=== PATIENT | female | born 1995 | race Caucasian/White ===

== ENCOUNTER 2017-05-14 09:49 | Day surgery (SDC) | payer MEDICARE, MEDICAID, SELFPAY ==
--- NOTE | 2017-05-14 | SEP_PTH ---
PATIENT: YONNY COOL LOC: [facility] [place] U[place][id number] AGE/SX: 22/F ROOM: RE05/14/[address]: Dr. Albert Powell MD : 1995 BED: DIS: 05/14/2017 SPEC #: [id number] RECD: 05/14/17 14:18 STATUS: JOHN WHIT #: [id number] SHYLA: 05/14/17 00:[address]: Albert Powell DEPT: SURGICAL PATHOLOGY RECD BY: Fuentes Rosado ENTERED: 05/14/17 14:19 SP TYPE: SEPTUM OTHR DR: Dr. Albert Solitario MD Tissues: Nasal septum, NOS Procedures: Decalcification bone/plaque Surgery Specimen Level III HEADER OPERATION: Septoplasty PRE-OP DIAGNOSIS: Deviated nasal septum TISSUE SUBMITTED: Septal cartilage MICROSCOPIC DIAGNOSIS Nasal septal cartilage, septoplasty: Fragment of hyaline cartilage and bone with reactive change. AM:jamey 2/2/18 MICROSCOPIC DESCRIPTION Slides are reviewed. GROSS DESCRIPTION Received in fixative is one container labeled with the patient's name and designated septal cartilage. The specimen consists of multiple irregular fragments of pink-white bone and cartilage that in aggregate measure 6 x 3 x 0.2 cm. The specimen is totally submitted in one cassette after decalcification. / AM:jamey 05/14/17 TC:5 CPT:15246, 06268
[2017-05-14 10:21] VITALS: BP 114/83; PULSE 93; RESP 16; TEMP 36.9; O2SAT 96; BMI 22.6
[2017-05-14 10:41] LABS: Bedside Glucose 95 mg/dL (70-110)
[2017-05-14 11:36] LABS: Internal QC Validated? YES +Cl - CLEAR BKGD; Pregnancy, Urine Negative Negative
[2017-05-14] MEDS: Lidocaine 4% 50 ML Bottle (11:54)
[2017-05-14] MEDS: Bacitracin 500 UNITS/GM PACKET (12:11)
--- NOTE | 2017-05-14 12:24 | PCM.DC ---
You will use the following diet at home:: Regular Discharge Activity: Return to Normal Activity, May not drive while taking narcotic pain medications. Call your doctor if your incision/area has: Continuous Slow Oozing, Sudden Increased Bleeding Call your doctor if you observe: Fever of 101 or Higher, Uncontrolled pain Allergies/Adverse Reactions: Allergies adalimumab [From Humira] Allergy (Verified 03/02/17 14:16) Unknown amoxicillin [Amoxicillin] Allergy (Verified 03/02/17 14:16) Unknown benzalkonium [Benzalkonium] Allergy (Verified 03/02/17 14:16) Unknown corn [[place]] Allergy (Verified 03/02/17 14:16) Unknown kiwi Allergy (Verified 03/02/17 14:16) Unknown latex Allergy (Verified 03/02/17 14:16) Unknown procaine HCl [From Novocain] Allergy (Verified 03/02/17 14:16) Unknown Sulfa (Sulfonamide Antibiotics) Allergy (Verified 03/02/17 14:16) Hives venom-honey bee [bee venom (honey bee)] Allergy (Verified 03/02/17 14:16) Swelling Medications to take at Discharge RX: Divalproex Sodium [Depakote] 250 mg PO BID 08/12/16 RX: Metformin HCl 500 mg PO BID 03/02/17 Primary Care Physician: Albert Solitario MD [Primary Care Provider] - Please Follow Up With: Albert Powell MD When: 5 days
--- NOTE | 2017-05-14 12:26 | PCM.OPRPT ---
Problem List (1) Deviated nasal septum Status: Chronic Report of Operation Date of Procedure: 05/14/17 Pre-Operative Diagnosis: deviated nasal septum Post-Operative Diagnosis: same Surgery/Procedure Performed:: Septoplasty Description of Surgical Findings:: Elena is a 22-year-old female with a history of multiple medical problems previously treated for her chronic ear disease who presents for evaluation now for chronic left-sided nasal obstruction with exam showing marketed nasal septal deviation. This had failed medical therapy and showed significant anatomic obstruction and the above procedure was offered in hopes of alleviation. Additionally there is noted to be a small verrucous lesion along the columella with excision as part of the surgical incision offered and she was eager to proceed. The risks, alternatives, potential complications, and benefits were discussed at length and witnessed informed consent in the office. Procedure went as follows: The patient was identified in the preoperative holding brought to the operating room where she is placed under general anesthesia and intubated. When appropriate anesthesia obtained, oxymetazoline and 4% topical lidocaine soaked pledgets were placed in the nasal cavity decongest the nasal mucosa. After lying for vasoconstriction, these were then removed and the nasal cavity examined. There is noted be markedly leftward nasal septal deviation. Using a 15 blade scalpel, a hemitransfixion incision was then made along the left side incorporating the small verruca which was excised and discarded. Using a Trupti elevator, a sub-periosteal perichondrial flap was then elevated. Due to the anterior location of the deviation dissection was then carried out over the anterior lip of the cartilage and similar flap raised on the contralateral side the cartilage was then freed along the nasal floor and partially shortened to allow for to be repositioned in the midline. The bony cartilaginous junction was then in the posterior bony deviation then resected high with a Paris forceps in the inferior portion removed piecemeal with a Rani forceps. This left a marketed bony spur along the nasal floor and this was sharply removed with a sharp chisel. Allowed for replacement of the nasal septal flaps in the midline in the alleviating the nasal obstruction with anteriorly and posteriorly. The anterior nasal cartilage was then repositioned and secured in a small skin flap that was developed restoring nasal tip support and the hemitransfixion incision closed with interrupted 4-0 chromic suture. A 4 oh plain gut quilting stitch was then used to reapproximate the mucosal flaps and Loco splints coated in bacitracin ointment then applied and secured to the columella with a single 3-0 Prolene suture. An NG tube was then placed to decompress the stomach and the patient returned to anesthesia where she was revived and extubated without complication having tolerated the procedure well. Type of Anesthesia:: General Anesthesiologist: Albert Kohli Specimen's removed: septal contents Estimated Blood Loss (mL): 20 mL Fluids Replaced: 600 mL - Complications none - Admit VTE Documentation VTE Mechan Device Prophylaxis: SCD's VTE Pharm Prophylaxis ordered?: No
[2017-05-14 12:34] VITALS: BP 114/83; BP 129/89; PULSE 83; RESP 18; TEMP 36.2; O2SAT 100
[2017-05-14 12:45] VITALS: BP 114/83; BP 118/74; PULSE 75; RESP 18; O2SAT 100
[2017-05-14 13:00] VITALS: BP 114/83; BP 137/91; PULSE 68; RESP 16; O2SAT 100
[2017-05-14 13:15] VITALS: BP 114/83; BP 128/89; PULSE 71; RESP 16; TEMP 36.6; O2SAT 100
[2017-05-14] MEDS: HYDROcodone Bitartrate/Apap 5/325 Tablet PO (14:06)
[2017-05-14 14:30] VITALS: BP 114/83
== END 2017-05-14 14:30 | disposition home or self-care (01) ==
LOC: SDC 09:50 → AC 09:53
PROVIDERS: Anesthesiology; Family Provider Family Medicine; PCP Family Medicine; Visit Provider Otolaryngology
PROC: (CPT 30520; principal; 2017-05-14 11:15)
DX: J34.2 Deviated nasal septum (principal); B07.9 Viral wart, unspecified; H72.01 Central perforation of tympanic membrane, right ear; H70.12 Chronic mastoiditis, left ear; F17.200 Nicotine dependence, unspecified, uncomplicated; I34.1 Nonrheumatic mitral (valve) prolapse; G40.909 Epilepsy, unspecified, not intractable, without status epilepticus; K51.90 Ulcerative colitis, unspecified, without complications; M08.00 Unspecified juvenile rheumatoid arthritis of unspecified site; Z79.84 Long term (current) use of oral hypoglycemic drugs; Z79.899 Other long term (current) drug therapy
CPT/HCPCS: 00160; 30520; 81025; 82962; 88304; 88311; J7120; J2405

== ENCOUNTER → 2017-06-03 14:27 | Outpatient (CLI) | payer MEDICARE, SELFPAY ==
[2017-06-03 19:57] LABS: Chlamydia Trachomatis by PCR Negative (Negative); Neisserai gonorrhoeae by PCR Negative (Negative); Probe Check PASS; Sample Adequacy Control PASS; Specimen Processing Control PASS
[2017-06-07 10:41] LABS: HPV Reflexed? NOT INDICATED
== END ==
PROVIDERS: Family Provider Family Medicine; PCP Family Medicine; Visit Provider Obstetrics & Gynecology
DX: Z12.4 Encounter for screening for malignant neoplasm of cervix (principal); Z11.3 Encounter for screening for infections with a predominantly sexual mode of transmission
CPT/HCPCS: 87491; 87591; 88175; G0145

== ENCOUNTER 2017-06-19 12:56 | Emergency (ER) | payer MEDICARE, MEDICAID, SELFPAY ==
[2017-06-19 12:56] VITALS: BP 125/77; PULSE 99; RESP 18; TEMP 36.8; O2SAT 100; BMI 22.8
--- NOTE | 2017-06-19 14:27 | ED.RN ---
Addendum entered by Dominique Davis 06/19/17 15:20: PT REFUSES BLOODWORK AND URINE. AGREEABLE TO STAY AND SEE WHAT NEUROLOGIST ONCALL HAS TO RECOMMEND. Original Note: PT CALLED OUT WITH QUESTIONS. ASKING WHY BLOODWORK AND URINE. EXPLAINED DR REASONING AND WHAT LOOKING FOR ON TESTS. EDUCATION ON SEIZXURE TRIGGERS IN RELATION TO TESTS. PT STATES I KNOW WHAT CAUSED MY SEIZURE, i JUST WANTED TO MAKE SURE MY BABY WAS OKAY. EXPLAINED DEVELOPMENT AND VIABLILTY AT 8 WEEKS. RISKS/BENEFITS AND INDIATIONS TO VAG U/S. PATIENT DENIES ABD PAIN, LOWER BACK PAIN, NAUSEA, CRAMPING, BLEEDING/SPOTTING.
--- NOTE | 2017-06-19 14:46 | ED.VISSUMM ---
- ER Visit Summary Date of Service: 06/19/17 Chief Complaint: [Seizure] History of Present Illness: The patient is a 22 F [presents to the emergency department with complaint of a seizure that occurred this morning around 10 AM. Patient states that she felt a seizure coming on so she laid down in bed and ended up incontinent of urine. Patient unsure how long the seizure lasted as she was alone. Patient has a known seizure history and was on Depakote until 2 weeks ago when she had weaned herself off because she was . Patient thinks she is approximately 8 weeks . Patient is . She denies any abdominal pain or vaginal bleeding. She denies any fever. Patient states that she was recently treated for urinary tract infection but her symptoms have resolved. Patient does not see a neurologist. Dr. Albert Solitario manages her seizure meds and she has an appointment to see him in about 2 weeks to see if there is something else to treat her seizure disorder with that would be safe in . Patient states that here because she was worried about her and wanted to make sure everything was okay with the baby. Patient states she has had seizures since a young age and is not concerned about that aspect of it.] Physical Examination: [HEENT-PERRLA, EOMI. Cranial nerves II through XII grossly intact. TMs clear. Mucous membranes moist. No adenopathy. No wounds to the tongue. Cardiovascular-regular rate and rhythm without murmur or ectopy Lungs-clear to auscultation, chest wall stable without crepitus or subcu emphysema Abdomen-normoactive bowel sounds, soft, nontender, no rebound or rigidity, no peritoneal signs. Neuro exam-finger to nose and heel to sage testing within normal limits, negative Romberg, negative pronator drift, fundi benign Extremities-intact ?4, normal range of motion, normal pulses, atraumatic] Test Results: [Patient refused blood work and urinalysis.] Emergency Department Course and Treatment: [I discussed case with Dr. Baca who recommended started patient on Lamictal. Patient understands that there is a increased risk of teratogenicity with seizure medications but this would be 1 of the safer ones. I was also asked to have the patient take folic acid 4 mg daily and patient states that she is currently taking folic acid but is not sure of the dosage.] Treatment Plan: [Patient will start on Lamictal 25 mg daily for a week followed by 25 mg twice a day for a week followed by 50 mg twice a day thereafter and they recommended a Lamictal level in 3 weeks. Patient to follow-up with neurology in the office.] Disposition: [Discharged to home in stable condition] Impression: [Seizure disorder-recurrent] This note was generated with [employer] dictation software. It may contain incorrect words, spelling, and punctuation that were not noted in review of the chart prior to signing ED Disposition - Plan for ED Patient: Chief Complaint: Seizure Referrals: Albert Solitario MD [Primary Care Provider] -
--- NOTE | 2017-06-19 15:07 | ED.DEP ---
ED Disposition - Plan for ED Patient: Chief Complaint: Seizure Instructions: ED Seizure Recurrent Prescriptions: Lamotrigine [Lamictal] 25 mg PO DAILY #60 tab Referrals: Albert Solitario MD [Primary Care Provider] - Cipriano Baca MD [STAFF PHYSICIAN] - 5-7 Days Additional Instructions: take 4mg of Folic acid daily
[2017-06-19 15:21] VITALS: BP 120/74; PULSE 88; RESP 14; O2SAT 100
== END 2017-06-19 15:22 | disposition home or self-care (01) ==
LOC: ED 14:42
PROVIDERS: Emergency Provider Emergency Medicine; Family Provider Family Medicine; PCP Family Medicine
DX: O99.351 Diseases of the nervous system complicating pregnancy, first trimester (principal); G40.909 Epilepsy, unspecified, not intractable, without status epilepticus; O99.331 Smoking (tobacco) complicating pregnancy, first trimester; Z3A.08 8 weeks gestation of pregnancy
CPT/HCPCS: 99282

== ENCOUNTER → 2017-06-23 10:01 | Outpatient (CLI) | payer MEDICARE, MEDICAID, SELFPAY ==
[2017-06-23 13:26] LABS: hCG Titer Quant., Serum 63295 mIU/mL (<9 non-preg)
== END ==
PROVIDERS: Visit Provider Obstetrics & Gynecology
DX: O20.0 Threatened abortion (principal)
CPT/HCPCS: 36415; 84702

== ENCOUNTER → 2017-06-25 10:27 | Outpatient (CLI) | payer MEDICARE, MEDICAID, SELFPAY ==
[2017-06-25 11:21] LABS: hCG Titer Quant., Serum 56277 mIU/mL (<9 non-preg)
== END ==
PROVIDERS: Visit Provider Obstetrics & Gynecology
DX: O20.0 Threatened abortion (principal)
CPT/HCPCS: 36415; 84702

== ENCOUNTER 2017-06-28 10:27 | Day surgery (SDC) | payer MEDICARE, MEDICAID, SELFPAY ==
[2017-06-28] VITALS (8 sets, daily range): BP systolic 93–112; BP diastolic 52–68; PULSE 73–85; RESP 12–16; TEMP 36.2–36.7; O2SAT 95–100; BMI 23.1
[2017-06-28 11:14] LABS: Hemoglobin 13.6 g/dl (12.0-15.0); Mean Corp Hgb Conc 34.9 g/gl (32-36); Mean Corpuscular Hgb 30.9 pg (27.0-32.0); Mean Corpuscular Volume 88.6 fL (81-99); Mean Platelet Vol. 9.7 fl (6.2-12.0); Platelet Count 240 K/mm3 (150-450); RBC Distribution Width CV 12.7 % (11.6-14.6); RBC Distribution Width SD 40.6 fl (35.1-43.9); White Blood Count 10.5 K/mm3 (4.4-11.0)
[2017-06-28 11:15] LABS: Scan Indicated on CBC? Y/N NO
[2017-06-28 11:22] LABS: Partial Thromboplast Time 26.2 Seconds (24.1-36.2)
--- NOTE | 2017-06-28 12:00 | POC_PTH ---
PATIENT: YONNY COOL LOC: [facility] – [place] U#:[id number] AGE/SX: 22/F ROOM: RE06/28/[address]: Dr. John Paul Winkler MD : 1995 BED: DIS: 06/28/2017 SPEC #: [id number] RECD: 06/28/17 13:07 STATUS: JOHN WHIT #: [id number] SHYLA: 06/28/17 12:[address]: John Paul Winkler DEPT: SURGICAL PATHOLOGY RECD BY: Isidro Hernandez ENTERED: 06/28/17 14:01 SP TYPE: PROD CONC OTHR DR: Dr. Albert Solitario MD Tissues: Product of conception, NOS Procedures: Surgery Specimen Level IV HEADER OPERATION: Dilation and curettage, suction PRE-OP DIAGNOSIS: Missed TISSUE SUBMITTED: Products of conception MICROSCOPIC DIAGNOSIS Endometrium, curettage: Chorionic villi, decidualized stroma and trophoblastic cells consistent with products of conception. AM:jamey 06/29/17 MICROSCOPIC DESCRIPTION Slides are reviewed. GROSS DESCRIPTION Received in fixative is one container labeled with the patient's name and designated products of conception. The specimen consists of multiple fragments of pink-red soft tissue that in aggregate measure 6 x 6 x 2.5 cm. tissue is not identified. Boat Builder And Repairer sections are submitted in two cassettes. / SJ:rg 06/28/17 TC:5 CPT: 86231
--- NOTE | 2017-06-28 12:15 | PCM.DC ---
You will use the following diet at home:: No restrictions Your food should be the consistency of: Regular Discharge Activity: Return to Normal Activity, May Drive, May not drive while taking narcotic pain medications., May Shower Return to work on:: 07/05/17 May shower in (days): 0 May resume sexual activity in: 3 weeks Call your doctor if your incision/area has: Sudden Increased Bleeding, Increased Pain/ Swelling, Foul Smelling Discharge Call your doctor if you observe: Fever of 101 or Higher, Inability to urinate, Inability to have a bowel movement, Using more than one pad per hour, Shortness of breath, Chest pain, Calf discomfort, Uncontrolled pain Allergies/Adverse Reactions: Allergies adalimumab [From Humira] Allergy (Verified 06/24/17 09:42) Unknown amoxicillin [Amoxicillin] Allergy (Verified 06/24/17 09:42) Unknown benzalkonium [Benzalkonium] Allergy (Verified 06/24/17 09:42) Unknown corn [[place]] Allergy (Verified 06/24/17 09:42) Unknown kiwi Allergy (Verified 06/24/17 09:42) Unknown latex Allergy (Verified 06/24/17 09:42) Unknown procaine HCl [From Novocain] Allergy (Verified 06/24/17 09:42) Unknown Sulfa (Sulfonamide Antibiotics) Allergy (Verified 06/24/17 09:42) Hives venom-honey bee [bee venom (honey bee)] Allergy (Verified 06/24/17 09:42) Swelling Medications to take at Discharge Lamotrigine [Lamictal] 25 mg PO DAILY #60 tab 06/19/17 Oxycodone [Oxyir] 5 mg PO Q4H PRN PRN 5 Days #20 tab 06/28/17 The following prescriptions were given: Oxycodone [Oxyir] 5 mg PO Q4H PRN PRN 5 Days #20 tab PRN Reason: Severe Pain (6-10/10) Primary Care Physician: Albert Solitario MD [Primary Care Provider] - Please Follow Up With: John Paul Winkler MD When: one week Proposed Discharge Date: 06/28/17
--- NOTE | 2017-06-28 12:28 | OP.PCM_ITS ---
Problem List (1) Missed with demise before 20 completed weeks of gestation Status: Chronic Report of Operation Date of Procedure: 06/28/17 Pre-Operative Diagnosis: Missed Post-Operative Diagnosis: Same Surgery/Procedure Performed:: Suction Dilation and Curettage Description of Surgical Findings:: 6 weeks size uterus. No cervical lesions. Products of conception appropriate senior marketing data analyst: None Type of Anesthesia:: MAC Anesthesiologist: Flaco Pandya Specimen's removed: Products of Conception Drains: None Estimated Blood Loss (mL): 25cc Fluids Replaced: 500cc Description of Procedure: Elena was taken to the OR with IV running. She was given clindamycin and gentamicin intravenously prior to the procedure as surgical prophylaxis. MAC anesthesia was then introduced without complication. She was prepped and draped in the dorsal lithotomy position. A catheter was then used to drain the bladder. A weighted speculum was placed in the posterior vagina, the cervix identified, and then grasped with a single toothed tenaculum. The cervix was then serially dilated to 7 mm without difficulty. A #7 suction curette was then placed into the uterine cavity. Suction was applied and products of conception obtained. A sharp curettage was then performed to a gritty texture throughout. The suction curette was reintroduced and the remaining products of conception obtained. All instruments were then removed from the vagina. Good hemostasis was noted. SHe was reversed from anesthesia and taken to the recovery room in stable condition. Grafts/Implants Used: none - Complications none - Admit VTE Documentation VTE Present on Admission: No VTE Mechan Device Prophylaxis: SCD's VTE Pharm Prophylaxis ordered?: No
[2017-06-28] MEDS: Clindamycin 900 MG/50 ML BAG 75 MG IV (12:36)
[2017-06-28] MEDS: oxyCODONE 5 MG Tablet PO (13:40)
== END 2017-06-28 14:00 | disposition home or self-care (01) ==
LOC: SDC 10:29 → AC 10:31
PROVIDERS: Family Provider Family Medicine; PCP Family Medicine; Visit Provider Obstetrics & Gynecology
PROC: (CPT 59820; principal; 2017-06-28 11:45)
DX: O02.1 Missed abortion (principal); R56.9 Unspecified convulsions; R73.03 Prediabetes; F17.210 Nicotine dependence, cigarettes, uncomplicated; Z79.84 Long term (current) use of oral hypoglycemic drugs; Z79.899 Other long term (current) drug therapy
CPT/HCPCS: 59820; 85027; 85610; 85730; 86850; 86900; 88305; J3010; J7120; J2405

== ENCOUNTER 2017-10-22 11:19 | Day surgery (SDC) | payer MEDICARE, MEDICAID, SELFPAY ==
[2017-10-22 11:45] VITALS: BP 111/66; PULSE 95; RESP 14; TEMP 36.6; O2SAT 98; BMI 24.7
[2017-10-22 11:49] LABS: Internal QC Validated? YES +Cl - CLEAR BKGD; Pregnancy, Urine Negative Negative
[2017-10-22] MEDS: Bacitracin 500 UNITS/GM PACKET (13:36)
--- NOTE | 2017-10-22 15:16 | PCM.OPRPT ---
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 This is been successfully treated with mastoidectomy and excellent correction of her conductive hearing loss. She continued to suffer large tympanic membrane perforation of the right with a significant conductive hearing loss and repair was offered in hopes of improvement of her hearing on that side as well. She was eager to proceed. The risks, alternatives, potential benefits, and complications were discussed at length and any questions answered to the patient and/or caregiver's satisfaction. Witnessed informed consent was obtained in the office, and the patient and/or caregiver was agreeable to proceed. Procedure went as follows: The patient was identified in the preoperative holding brought to the operating room and was placed under general anesthesia and intubated. The operative ear had been site marked preoperatively in accordance with the office notes patient exam and history. The patient was then placed under general anesthesia and the right ear prepped and draped in usual sterile fashion. The facial nerve monitoring electrodes were then placed in the confirmed to be operational in accordance with the manufactures directions. The planned postauricular incision site for fascial graft harvest was then injected with 1% lidocaine with 100,000 epinephrine for a total of 4 cc. Through a #4 otic speculum the operative microscope was brought into the field and the external auditory canal and tympanic membrane visualized. The lateral canal wall was then injected with 1% lidocaine with 100,000 epinephrine for a total of 0.5 cc. Using a sickle knife the edge of the perforation was then sharply resected and withdrawn from the ear canal with a cup forceps. Using a round knife a vascular strip incision was then created and the skin flap developed toward the annulus. The middle ear cleft was then entered with a curved pick and the annulus elevated with the annulus elevator. This was then draped anteriorly to allow visualization of the middle ear cleft which is noted to be healthy in appearance. Epinephrine soaked cotton balls and placed for hemostasis and attention turned to the fascial graft harvest. A 3 cm incision was then created a 15 blade scalpel posterior to the auricle at the previous injection site. The skin and subcutaneous tissues were then dissected and the posterior auricular muscle sharply transected. The subfascial plane was then widely developed any 2.5 x 2.5 centimeter portion of loose areolar tissue then harvested and set aside on a Gilmer block for reconstruction of the tympanic membrane. The wound edges were then cauterized with electrocautery for hemostasis and closed deeply with interrupted 3-0 Vicryl sutures followed by running 5-0 Monocryl to the skin. This completed the graft harvest portion of the procedure. Attention was then turned to reconstruction of the tympanic membrane. The operative microscope was replaced and through an otic speculum the middle ear cleft filled with Gelfoam packing material after removal of the epinephrine soaked cotton balls. The previously harvested graft tissue was then placed in an underlay fashion ensuring that it completely covered the tympanic membrane perforation. The vascular strip was then returned to its [place] position and additional Gelfoam material applied laterally to hold the composite tissue graft in place. Bacitracin ointment was then applied to secure the material and the patient then cleaned of prep solution and the facial nerve monitoring electrodes removed. The patient was then returned to anesthesia, revived and extubated without complication having tolerated the procedure well. Type of Anesthesia:: General Anesthesiologist: Albert Kohli Special Medications: none Specimen's removed: none Drains: none Estimated Blood Loss (mL): 0 mL Fluids Replaced: 800 mL Grafts/Implants Used: fascia graft - Complications none - Admit VTE Documentation VTE Present on Admission: No VTE Mechan Device Prophylaxis: SCD's VTE Pharm Prophylaxis ordered?: No
--- NOTE | 2017-10-22 15:20 | PCM.DC ---
- Discharge Diagnoses Current Active Problems: Current Active and Chronic Problems Central perforation of tympanic membrane of right ear (Chronic) You will use the following diet at home:: Regular Discharge Activity: Return to Normal Activity, May not drive while taking narcotic pain medications. Call your doctor if your incision/area has: Continuous Slow Oozing, Increased Pain/ Swelling, Swelling at the incision site Call your doctor if you observe: Fever of 101 or Higher, Uncontrolled pain Allergies/Adverse Reactions: Allergies adalimumab [From Humira] Allergy (Verified 10/14/17 16:23) Unknown amoxicillin [Amoxicillin] Allergy (Verified 10/14/17 16:23) Unknown benzalkonium [Benzalkonium] Allergy (Verified 10/14/17 16:23) Unknown corn [[place]] Allergy (Verified 10/14/17 16:23) Unknown kiwi Allergy (Verified 10/14/17 16:23) Unknown latex Allergy (Verified 10/14/17 16:23) Unknown procaine HCl [From Novocain] Allergy (Verified 10/14/17 16:23) Unknown Sulfa (Sulfonamide Antibiotics) Allergy (Verified 10/14/17 16:23) Hives venom-honey bee [bee venom (honey bee)] Allergy (Verified 10/14/17 16:23) Swelling Medications to take at Discharge RX: Lamotrigine [Lamictal] 25 mg PO DAILY #60 tab 06/19/17 Citalopram Hydrobromide [Celexa] 20 mg PO DAILY 10/22/17 Primary Care Physician: Albert Solitario MD [Primary Care Provider] - Test Results: Test results from this visit will be discussed in further detail at your follow-up appointment, if applicable. Please Follow Up With: Albert Powell MD When: 4 days
[2017-10-22 15:23] VITALS: BP 111/66; BP 132/69; PULSE 103; RESP 16; TEMP 36.3; O2SAT 99
[2017-10-22 15:30] VITALS: BP 111/66; BP 121/62; PULSE 95; RESP 16; O2SAT 95
[2017-10-22 15:45] VITALS: BP 111/66; BP 121/67; PULSE 95; RESP 16; O2SAT 96
[2017-10-22 15:56] VITALS: BP 111/66; BP 118/69; PULSE 106; RESP 16; TEMP 36.2; O2SAT 97
[2017-10-22 16:22] VITALS: BP 111/66
== END 2017-10-22 16:23 | disposition home or self-care (01) ==
LOC: SDC 11:19 → AC 11:21
PROVIDERS: Family Provider Family Medicine; PCP Family Medicine; Visit Provider Otolaryngology
PROC: (CPT 20926; principal; 2017-10-22 12:50)
DX: H72.01 Central perforation of tympanic membrane, right ear (principal); H90.0 Conductive hearing loss, bilateral; H95.02 Recurrent cholesteatoma of postmastoidectomy cavity, left ear; J30.9 Allergic rhinitis, unspecified; R56.9 Unspecified convulsions; M08.00 Unspecified juvenile rheumatoid arthritis of unspecified site; F17.200 Nicotine dependence, unspecified, uncomplicated; Z87.442 Personal history of urinary calculi; Z79.899 Other long term (current) drug therapy
CPT/HCPCS: 20926; 69631; 81025; J7120; J2405

== ENCOUNTER → 2017-12-01 13:35 | Outpatient (CLI) | payer MEDICARE, MEDICAID, SELFPAY ==
[2017-12-01 17:15] LABS: Chlamydia Trachomatis by PCR Negative (Negative); Neisserai gonorrhoeae by PCR Negative (Negative); Probe Check PASS; Sample Adequacy Control PASS; Specimen Processing Control PASS
== END ==
PROVIDERS: Visit Provider Obstetrics & Gynecology
DX: Z11.3 Encounter for screening for infections with a predominantly sexual mode of transmission (principal); Z32.01 Encounter for pregnancy test, result positive
CPT/HCPCS: 87491; 87591

== ENCOUNTER → 2017-12-16 10:55 | Outpatient (CLI) | payer MEDICARE, MEDICAID, SELFPAY ==
[2017-12-16 12:29] LABS: Absolute Neutrophil Count 7.2 X10^3/uL (2.0-7.7); Basophil# 0.05 X10^3/uL; Basophil% 0.5 % (0-1); Eosinophil# 0.25 X10^3/uL; Eosinophils% 2.4 % (0-5); Hematocrit 37.7 % (37-47); Hemoglobin 13.1 g/dl (12.0-15.0); Lymphocyte % 20.9 % (19-41); Mean Corp Hgb Conc 34.7 g/gl (32-36); Mean Corpuscular Hgb 30.7 pg (27.0-32.0); Mean Corpuscular Volume 88.3 fL (81-99); Mean Platelet Vol. 10.4 fl (6.2-12.0); Monocyte# 0.85 X10^3/uL; Monocyte% 8.1 % (0-10); Neutrophil # 7.19 X10^3/uL (2.7-7.7); Platelet Count 242 K/mm3 (150-450); RBC Distribution Width CV 12.1 % (11.6-14.6); RBC Distribution Width SD 38.3 fl (35.1-43.9); Red Blood Count 4.27 M/mm3 (4.2-5.4); White Blood Count 10.6 K/mm3 (4.4-11.0)
[2017-12-16 12:35] LABS: Color, Urine Yellow (Yellow); Glucose, Dipstick Normal (Normal); Ketone-Dipstick Negative (Negative); Leukocyte Esterase-Dipstick Negative /ul (Negative); Nitrite-Dipstick Negative (Negative); Occult Blood-Urine Negative /ul (Negative); Protein-Dipstick Negative (Negative); Specific Gravity, Urine 1.015 (1.002-1.030); Urine Bilirubin Dipstick Negative (Negative); Urine Clarity Clear (Clear); Urine Urobilinogen Normal (Normal)
[2017-12-16 12:37] LABS: POSITIVE COUNT NO; POSITIVE DIFFERENTIAL NO; POSITIVE MORPHOLOGY NO
[2017-12-16 12:56] LABS: Amphetamine Urine VISTA NEGATIVE (<1000 ng/mL); Barbiturate Urine VISTA NEGATIVE (< 200 ng/mL); Benzodiazepine Urine VISTA NEGATIVE (< 200 ng/mL); Cocaine Urine VISTA NEGATIVE (< 300 ng/mL); Ecstacy Urine VISTA NEGATIVE (< 500 ng/mL); Methadone Urine VISTA NEGATIVE (< 300 ng/mL); PCP Urine VISTA NEGATIVE (< 25 ng/mL); THC Urine VISTA POSITIVE (< 50 ng/mL); Vista UDS pH Range 7
[2017-12-16 13:18] LABS: COTININE Drug Screen Positive (<200 ng/mL)
[2017-12-17 03:50] LABS: Prenatal RPR NONREACTIVE (NONREACTIVE)
[2017-12-17 09:42] LABS: HIV - WCH Non-Reactive (Nonreactive); Rubella IgG 139.7 IU/mL
[2017-12-20 13:18] LABS: HEPATITIS B SURFACE AG Negative (Negative); Hep C Antibodies <0.1 s/co ratio (0.0-0.9); V-Zoster IgG (Immunity) 2435 index (Immune >165)
== END ==
PROVIDERS: Family Provider Family Medicine; PCP Family Medicine; Visit Provider Obstetrics & Gynecology
DX: Z34.81 Encounter for supervision of other normal pregnancy, first trimester (principal)
CPT/HCPCS: 36415; 80307; 81002; 84443; 85025; 86703; 86762; 86787; 86803; 87340

== ENCOUNTER → 2018-05-12 11:07 | Outpatient (CLI) | payer MEDICARE, MEDICAID, SELFPAY ==
[2018-05-12 13:04] LABS: Hematocrit 33.9 % (37-47); Hemoglobin 11.6 g/dl (12.0-15.0); Mean Corp Hgb Conc 34.2 g/gl (32-36); Mean Corpuscular Hgb 31.6 pg (27.0-32.0); Mean Corpuscular Volume 92.4 fL (81-99); Mean Platelet Vol. 9.6 fl (6.2-12.0); Platelet Count 258 K/mm3 (150-450); RBC Distribution Width CV 12.8 % (11.6-14.6); RBC Distribution Width SD 42.3 fl (35.1-43.9); Red Blood Count 3.67 M/mm3 (4.2-5.4); White Blood Count 19.1 K/mm3 (4.4-11.0)
[2018-05-12 13:05] LABS: Scan Indicated on CBC? Y/N NO
[2018-05-12 13:10] LABS: Glucose Challenge Gest 1H 50g 108 mg/dL (70-140)
== END ==
PROVIDERS: PCP Family Medicine; Visit Provider Obstetrics & Gynecology
DX: Z34.83 Encounter for supervision of other normal pregnancy, third trimester (principal)
CPT/HCPCS: 36415; 82950; 85027

== ENCOUNTER → 2018-07-06 16:13 | Outpatient (CLI) | payer MEDICARE, MEDICAID, SELFPAY ==
[2017-10-25 15:48] VITALS: BMI 24.8
== END ==
PROVIDERS: Visit Provider Obstetrics & Gynecology
DX: Z36.85 Encounter for antenatal screening for Streptococcus B (principal)
CPT/HCPCS: 87081

== ENCOUNTER → 2018-07-12 10:56 | Outpatient (CLI) | payer MEDICARE, MEDICAID, SELFPAY ==
[2017-10-25 15:48] VITALS: BMI 24.8
[2018-07-12 11:25] LABS: Hematocrit 33.7 % (37-47); Hemoglobin 11.7 g/dl (12.0-15.0); Mean Corp Hgb Conc 34.7 g/gl (32-36); Mean Corpuscular Volume 89.2 fL (81-99); Mean Platelet Vol. 9.7 fl (6.2-12.0); Platelet Count 183 K/mm3 (150-450); RBC Distribution Width CV 13.3 % (11.6-14.6); RBC Distribution Width SD 43.1 fl (35.1-43.9); Red Blood Count 3.78 M/mm3 (4.2-5.4); White Blood Count 13.7 K/mm3 (4.4-11.0)
[2018-07-12 11:26] LABS: Scan Indicated on CBC? Y/N NO
[2018-07-12 11:34] LABS: International Normalized Ratio 0.9; Partial Thromboplast Time 25.9 Seconds (24.1-36.2); Prothrombin Time (Protime)PT. 11.8 SECONDS (11.7-14.9)
[2018-07-12 12:07] LABS: AST(SGOT) 13 U/L (15-37); Alanine Aminotransfer ALT/SGPT 11 U/L (13-56); EST Glomerular Filtration Rate 162 mL/min (>60); Est Glom Filt Rate - Afr Amer 196 mL/min (>60); Uric Acid 3.4 mg/dL (2.6-6.0)
== END ==
PROVIDERS: Visit Provider Obstetrics & Gynecology
DX: Z34.83 Encounter for supervision of other normal pregnancy, third trimester (principal)
CPT/HCPCS: 36415; 82565; 84450; 84460; 84550; 85027; 85610; 85730

== ENCOUNTER → 2018-07-13 16:34 | Outpatient (CLI) | payer MEDICARE, MEDICAID, SELFPAY ==
[2017-10-25 15:48] VITALS: BMI 24.8
[2018-07-13 17:30] LABS: ROM Internal Control Test YES-OK TO RESULT pt. (Internal QC); ROM Patient Test Negative (Negative); Record Kit Lot#, ROM+ J7836
[2018-07-13 18:36] LABS: 24 Hour Urine Protein 211.6 mg/24HR (<150 MG/24HR); 24HR. UA Prot. Total Volume 850 mL; Urine Protein (24 Hour) 24.9 mg/dL (<11.9)
== END ==
PROVIDERS: Visit Provider Obstetrics & Gynecology
DX: Z34.83 Encounter for supervision of other normal pregnancy, third trimester (principal)
CPT/HCPCS: 81050; 84112; 84156

== ENCOUNTER 2018-07-23 18:45 | Outpatient (CLI) | payer MEDICARE, MEDICAID, SELFPAY ==
[2018-07-23 18:55] VITALS: BMI 30.7
[2018-07-23] MEDS: 0.9% NaCl Peripheral Flush Adult/Peds IV (20:35)
[2018-07-23 21:10] LABS: AST(SGOT) 13 U/L (15-37); Alanine Aminotransfer ALT/SGPT 12 U/L (13-56); Creatinine, Serum 0.46 mg/dL (0.55-1.02); EST Glomerular Filtration Rate 179 mL/min (>60); Est Glom Filt Rate - Afr Amer 217 mL/min (>60); Estimated Creatinine Clearance 188.06 ml/min; Uric Acid 3.4 mg/dL (2.6-6.0)
[2018-07-23 21:21] LABS: Hematocrit 35.1 % (37-47); Mean Corp Hgb Conc 34.2 g/gl (32-36); Mean Corpuscular Hgb 30.6 pg (27.0-32.0); Mean Corpuscular Volume 89.5 fL (81-99); Mean Platelet Vol. 9.5 fl (6.2-12.0); Platelet Count 215 K/mm3 (150-450); RBC Distribution Width CV 13.4 % (11.6-14.6); RBC Distribution Width SD 43.4 fl (35.1-43.9); Red Blood Count 3.92 M/mm3 (4.2-5.4); White Blood Count 15.1 K/mm3 (4.4-11.0)
[2018-07-23 21:24] LABS: Bacteria 0 SEEN /hpf (None Seen); Mucous, Urine 0 SEEN /hpf (<or=2+)
[2018-07-23 21:25] LABS: International Normalized Ratio 0.9; Partial Thromboplast Time 26.2 Seconds (24.1-36.2); Scan Indicated on CBC? Y/N NO
[2018-07-23 21:29] LABS: Color, Urine Yellow (Yellow); Glucose, Dipstick Normal (Normal); Ketone-Dipstick Negative (Negative); Leukocyte Esterase-Dipstick 500 /ul (Negative); Nitrite-Dipstick Negative (Negative); Occult Blood-Urine Negative /ul (Negative); Protein-Dipstick Negative (Negative); Urine Bilirubin Dipstick Negative (Negative); Urine Clarity Clear (Clear); Urine Urobilinogen Normal (Normal)
[2018-07-23 21:37] LABS: Red Blood Cells-Urine 0-5 SEEN /hpf (0-5); White Blood Cells 0-5 SEEN /hpf (0-5)
[2018-07-23 21:38] LABS: Squamous Epithelial Cells - UA 5-10 SEEN /hpf (5-10)
--- NOTE | 2018-07-25 08:51 | OB.TRI.HP_ITS ---
History of Present Illness Date of Service: 07/23/18 Was patient seen by the physician?: No Reason For Visit: INCREASED BP Date of Service: 07/23/18 Final YAMILET: 07/31/18 Final YAMILET Source: US <20 weeks Gestational age: 38 Weeks and 6 Days History of Present Illness: 38+ week presents with headaches. Also some spots in her vision. Patient is a smoker. Induction scheduled for next week. Allergies adalimumab [From Humira] Allergy (Verified 07/23/18 18:55) Unknown amoxicillin [Amoxicillin] Allergy (Verified 07/23/18 18:55) Unknown benzalkonium [Benzalkonium] Allergy (Verified 07/23/18 18:55) Unknown corn [[place]] Allergy (Verified 07/23/18 18:55) Unknown kiwi Allergy (Verified 07/23/18 18:55) Unknown latex Allergy (Verified 07/23/18 18:55) Unknown procaine HCl [From Novocain] Allergy (Verified 07/23/18 18:55) Unknown Sulfa (Sulfonamide Antibiotics) Allergy (Verified 07/23/18 18:55) Hives venom-honey bee [bee venom (honey bee)] Allergy (Verified 07/23/18 18:55) Swelling - Pertinent Past Medical History Medical History: Past Medical History (Last Updated 10/25/17 @ 15:26 by Magda Tenorio) Benign tumor of breast History of arthritis History of frequent headaches History of hemorrhoids History of mitral valve prolapse history of eardrum reconstruction Surgical History: Past Surgical History (Last Updated 10/25/17 @ 15:26 by Magda Tenorio) History of appendectomy Laboratory Studies: Laboratory Tests 07/23/18 07/23/18 07/23/18 Range/Units 20:57 20:40 20:40 WBC (4.4-11.0) K/mm3 RBC (4.2-5.4) M/mm3 Hgb (12.0-15.0) g/dl Hct (37-47) % MCV (81-99) fL MCH (27.0-32.0) pg MCHC (32-36) g/gl RDW (11.6-14.6) % RDW Differential (35.1-43.9) fl Plt Count (150-450) K/mm3 MPV (6.2-12.0) fl PT 12.0 (11.7-14.9) SECONDS INR 0.9 APTT 26.2 (24.1-36.2) Seconds Creatinine 0.46 L (0.55-1.02) mg/dL Estim Creat Clear Calc 188.06 ml/min Est GFR (MDRD) Af Amer 217 (>60) mL/min Est GFR (MDRD) Non-Af 179 (>60) mL/min Uric Acid 3.4 (2.6-6.0) mg/dL AST 13 L (15-37) U/L ALT 12 L (13-56) U/L Urine Color Yellow (Yellow) Urine Clarity Clear (Clear) Urine pH 7.0 (5.0 - 8.0) Ur Specific [place] 1.010 (1.002-1.030) Urine Protein Negative (Negative) mg/dl Urine Glucose (UA) Normal (Normal) mg/dl Urine Ketones Negative (Negative) mg/dl Urine Occult Blood Negative (Negative) /ul Urine Nitrite Negative (Negative) Urine Bilirubin Negative (Negative) mg/dL Urine Urobilinogen Normal (Normal) mg/dl Ur Leukocyte Esterase 500 H (Negative) /ul Urine RBC 0-5 SEEN (0-5) /hpf Urine WBC 0-5 SEEN (0-5) /hpf Ur Squamous Epith Cells 5-10 SEEN (5-10) /hpf Urine Bacteria 0 SEEN (None Seen) /hpf Urine Mucus 0 SEEN (<or=2+) /hpf 07/23/18 Range/Units 20:40 WBC 15.1 H (4.4-11.0) K/mm3 RBC 3.92 L (4.2-5.4) M/mm3 Hgb 12.0 (12.0-15.0) g/dl Hct 35.1 L (37-47) % MCV 89.5 (81-99) fL MCH 30.6 (27.0-32.0) pg MCHC 34.2 (32-36) g/gl RDW 13.4 (11.6-14.6) % RDW Differential 43.4 (35.1-43.9) fl Plt Count 215 (150-450) K/mm3 MPV 9.5 (6.2-12.0) fl PT (11.7-14.9) SECONDS INR APTT (24.1-36.2) Seconds Creatinine (0.55-1.02) mg/dL Estim Creat Clear Calc ml/min Est GFR (MDRD) Af Amer (>60) mL/min Est GFR (MDRD) Non-Af (>60) mL/min Uric Acid (2.6-6.0) mg/dL AST (15-37) U/L ALT (13-56) U/L Urine Color (Yellow) Urine Clarity (Clear) Urine pH (5.0 - 8.0) Ur Specific [place] (1.002-1.030) Urine Protein (Negative) mg/dl Urine Glucose (UA) (Normal) mg/dl Urine Ketones (Negative) mg/dl Urine Occult Blood (Negative) /ul Urine Nitrite (Negative) Urine Bilirubin (Negative) mg/dL Urine Urobilinogen (Normal) mg/dl Ur Leukocyte Esterase (Negative) /ul Urine RBC (0-5) /hpf Urine WBC (0-5) /hpf Ur Squamous Epith Cells (5-10) /hpf Urine Bacteria (None Seen) /hpf Urine Mucus (<or=2+) /hpf NST - FHR Rate Baby A NST Reactive:: Yes FHR Category:: Category I Impression/Plan 38+ week intrauterine with transient gestational hypertension. PIH workup negative. Blood pressures okay when resting. Patient discharged to home with instructions for bedrest most of the time and to return the office on Wednesday for a blood pressure check. Reactive nonstress test.
== END 2018-07-23 23:00 | disposition home or self-care (01) ==
LOC: WPOUT 18:53 → WP 18:53
PROVIDERS: Family Provider Family Medicine; PCP Family Medicine; Referring Provider Obstetrics & Gynecology; Visit Provider Obstetrics & Gynecology
DX: O13.3 Gestational [pregnancy-induced] hypertension without significant proteinuria, third trimester (principal); Z3A.38 38 weeks gestation of pregnancy
CPT/HCPCS: 36415; 59025; 59050; 81001; 82565; 84450; 84460; 84550; 85027; 85610; 85730; 99218; G0378

== ENCOUNTER 2018-07-29 06:53 | Inpatient (IN) | payer MEDICARE, MEDICAID, SELFPAY ==
[2018-07-29 07:28] VITALS: BMI 31.1
[2018-07-29] MEDS: Lactated Ringers 1,000 ML 50 ML IV ×5 (07:30→21:55)
[2018-07-29] MEDS: 0.9% Normal Saline 100 ML IV.SOLN. INTRA-UTER (07:53)
--- NOTE | 2018-07-29 07:54 | PCM.PROGNOTE ---
Subjective: Comfortable Objective: Afeb BPs 130s to 140s/80 to 90s FHR tracing overall Cat 1. - Physical Exam General: Alert, Oriented x3, Cooperative, No apparent distress Lungs: Clear to auscultation, Normal air movement Cardiovascular: Regular rate, Regular Rhythm Abdomen: Soft, Non Tender, Non-Distended, Gravid, Appropriate for Gestational Age Extremities: No edema Skin: No rashes Neurological: Neuro grossly intact Psych/Mental Status: Normal Affect Comment: CE /-3 Weight: 138 lb 14.259 oz Body Mass Index (BMI) 31.1 Medical Necessity - Tobacco Use Smoking Status: Current every day smoker Assessment/Plan All Active Problems (Last Updated 10/25/17 @ 15:26 by Magda Tenorio) Lymphadenopathy, inguinal (Acute) Admitted for induction of labor secondary to gestational hypertension. No signs of preeclampsia. Dean Pitocin induction started. Silicone catheter placed through the cervical os and then balloon filled with 50cc of NS. Will start pitocin to induce contractions.
[2018-07-29 08:14] LABS: Absolute Lymphocyte Count 2.36 X10^3/ul (0.83-4.51); Absolute Neutrophil Count 12.1 X10^3/uL (2.0-7.7); Basophil# 0.03 X10^3/uL; Basophil% 0.2 % (0-1); Eosinophil# 0.13 X10^3/uL; Eosinophils% 0.8 % (0-5); Hematocrit 37.1 % (37-47); Hemoglobin 12.9 g/dl (12.0-15.0); Lymphocyte # 2.36 X10^3/ul (4.0); Lymphocyte % 14.6 % (19-41); Mean Corp Hgb Conc 34.8 g/gl (32-36); Mean Corpuscular Hgb 30.9 pg (27.0-32.0); Mean Corpuscular Volume 88.8 fL (81-99); Mean Platelet Vol. 10.2 fl (6.2-12.0); Monocyte# 1.41 X10^3/uL; Monocyte% 8.7 % (0-10); Neutrophil # 12.12 X10^3/uL (2.7-7.7); Neutrophil % 75.2 % (47-70); POSITIVE COUNT NO; POSITIVE DIFFERENTIAL NO; POSITIVE MORPHOLOGY NO; Platelet Count 225 K/mm3 (150-450); RBC Distribution Width SD 41.5 fl (35.1-43.9); Red Blood Count 4.18 M/mm3 (4.2-5.4); White Blood Count 16.1 K/mm3 (4.4-11.0)
[2018-07-29] MEDS: Oxytocin 30 units/NS 500 ml 30 UNITS/500 ML IV.SOLN IV (08:55)
[2018-07-29] MEDS: Nalbuphine 10 MG/ML Ampul IV (10:32)
[2018-07-29] MEDS: fentaNYL-bupivacaine (epidural) 100 ML BAG EPIDURAL ×2 (11:57→17:51)
--- NOTE | 2018-07-29 12:21 | PN_ITS ---
Subjective: More comfortable with epidural in place Objective: Afeb VSS FHR tracing Cat 1 - Physical Exam General: Alert, Oriented x3, Cooperative, No apparent distress Abdomen: Soft, Non Tender, Non-Distended, Gravid, Appropriate for Gestational Age Skin: No rashes Neurological: Neuro grossly intact Psych/Mental Status: Normal Affect Comment: CE 4cm 50 -3 Weight: 138 lb 14.259 oz Body Mass Index (BMI) 31.1 Laboratory Tests Past 24 Hrs 07/29/18 07/29/18 07:30 07:30 WBC 16.1 H RBC 4.18 L Hgb 12.9 Hct 37.1 MCV 88.8 MCH 30.9 MCHC 34.8 RDW 13.0 RDW Differential 41.5 Plt Count 225 MPV 10.2 Immature Gran % (Auto) 0.500 Neut % (Auto) 75.2 H Lymph % (Auto) 14.6 L [place] % (Auto) 8.7 Eos % (Auto) 0.8 Baso % (Auto) 0.2 Absolute Neuts (auto) 12.1 H Absolute Lymphs (auto) 2.36 Total Counted Not Reportable Blood Type A POSITIVE Antibody Screen NEGATIVE Medical Necessity - Tobacco Use Smoking Status: Light Smoker (<10/day) Assessment/Plan All Active Problems (Last Updated 10/25/17 @ 15:26 by Magda Tenorio) Lymphadenopathy, inguinal (Acute) Dean bulb now out. AROM performed with clear fluid. IUPC placed. Epidural in place. Continue pitocin induction
--- NOTE | 2018-07-29 15:36 | PCM.PROGNOTE ---
Subjective: Comfortable with epidural Objective: Afeb VSS - Physical Exam General: Alert, Oriented x3, Cooperative, No apparent distress Abdomen: Soft, Non Tender, Non-Distended, Gravid, Appropriate for Gestational Age Comment: CE /-2 Weight: 138 lb 14.259 oz Body Mass Index (BMI) 31.1 Intake and Output for Last 24 Hours 07/27/18 07/28/18 07/29/18 23:59 23:59 23:59 Intake Total 2130 / 2130 Output Total 400 / 400 Balance 1730 / 1730 Laboratory Tests Past 24 Hrs 07/29/18 07/29/18 07:30 07:30 WBC 16.1 H RBC 4.18 L Hgb 12.9 Hct 37.1 MCV 88.8 MCH 30.9 MCHC 34.8 RDW 13.0 RDW Differential 41.5 Plt Count 225 MPV 10.2 Immature Gran % (Auto) 0.500 Neut % (Auto) 75.2 H Lymph % (Auto) 14.6 L [place] % (Auto) 8.7 Eos % (Auto) 0.8 Baso % (Auto) 0.2 Absolute Neuts (auto) 12.1 H Absolute Lymphs (auto) 2.36 Total Counted Not Reportable Blood Type A POSITIVE Antibody Screen NEGATIVE Medical Necessity - Tobacco Use Smoking Status: Light Smoker (<10/day) Assessment/Plan All Active Problems (Last Updated 10/25/17 @ 15:26 by Magda Tenorio) Lymphadenopathy, inguinal (Acute) Making progress in labor. FHR tracing reassuring.
[2018-07-29] MEDS: Amnioinfusion- 0.9% NS 1,000 ML IV.SOLN. INTRA-UTER (18:18)
[2018-07-30] VITALS (9 sets, daily range): BP systolic 108–150; BP diastolic 59–89; PULSE 88–137; RESP 16–24; TEMP 36.3–36.9; O2SAT 97–100
[2018-07-30] MEDS: fentaNYL-bupivacaine (epidural) 100 ML BAG EPIDURAL (00:33)
[2018-07-30] MEDS: Acetaminophen 325 MG Tablet PO (00:55)
[2018-07-30] MEDS: Lactated Ringers 1,000 ML 50 ML IV (01:41)
--- NOTE | 2018-07-30 01:44 | PCM.PROGNOTE ---
Subjective: Feeling contractions Objective: Tm 101 BP stable - Physical Exam General: Alert, Oriented x3, Cooperative, No apparent distress Abdomen: Soft, Non Tender, Non-Distended, Gravid, Appropriate for Gestational Age Skin: No rashes Neurological: Neuro grossly intact Comment: JASON FD +1 station Weight: 138 lb 14.259 oz Body Mass Index (BMI) 31.1 Intake and Output for Last 24 Hours 07/28/18 07/29/18 07/30/18 23:59 23:59 23:59 Intake Total 5383 / 5383 Output Total 935 / 935 Balance 4448 / 4448 Laboratory Tests Past 24 Hrs 07/29/18 07/29/18 07:30 07:30 WBC 16.1 H RBC 4.18 L Hgb 12.9 Hct 37.1 MCV 88.8 MCH 30.9 MCHC 34.8 RDW 13.0 RDW Differential 41.5 Plt Count 225 MPV 10.2 Immature Gran % (Auto) 0.500 Neut % (Auto) 75.2 H Lymph % (Auto) 14.6 L [place] % (Auto) 8.7 Eos % (Auto) 0.8 Baso % (Auto) 0.2 Absolute Neuts (auto) 12.1 H Absolute Lymphs (auto) 2.36 Total Counted Not Reportable Blood Type A POSITIVE Antibody Screen NEGATIVE Medical Necessity - Tobacco Use Smoking Status: Light Smoker (<10/day) Assessment/Plan All Active Problems (Last Updated 10/25/17 @ 15:26 by Magda Tenorio) Lymphadenopathy, inguinal (Acute) Now pushing for one hour with some progress.
--- NOTE | 2018-07-30 01:49 | DCINST_ITS ---
Discharge Diet: No Restrictions Discharge Activity: Return to Normal Activity Return to work on:: 10/03/18 May shower in (days): 0 May resume sexual activity in: 6 weeks Call your doctor if your incision/area has: Sudden Increased Bleeding, Increased Pain/ Swelling, Foul Smelling Discharge Call your doctor if you observe: Fever of 101 or Higher, Inability to urinate, Inability to have a bowel movement, Using more than one pad per hour, Shortness of breath, Chest pain, Calf discomfort, Uncontrolled pain Cleanse incision/area with: Soap & Water Additional Instructions: If you experience any of the following, contact your healthcare provider. * Bleeding that soaks a pad every hour for 2 hours * Fever 100.4 or higher * Unrelieved incision or abdominal pain * Swelling, redness, discharge or bleeding from your incision or episiotomy site * Your incision begins to separate * Problems urinating (including inability to urinate or burning while urinating). * Visual changes * Severe headache * Flu-like symptoms * Pain or redness in one of both of your breasts * Pain, warmth, tenderness or swelling in your legs, especially the calf area * Frequent nausea and vomiting * Symptoms of depression or anxiety If you experience any of the following, call 911 or go to the nearest Emergency Room. * Chest pain * Problems breathing * Seizure activity * Partial or complete paralysis of a body part, slurred speech, weakness or drooping of the face, or a sudden inability to walk or hold your balance Allergies/Adverse Reactions: Allergies adalimumab [From Humira] Allergy (Verified 07/23/18 18:55) Unknown amoxicillin [Amoxicillin] Allergy (Verified 07/23/18 18:55) Unknown benzalkonium [Benzalkonium] Allergy (Verified 07/23/18 18:55) Unknown corn [[place]] Allergy (Verified 07/23/18 18:55) Unknown kiwi Allergy (Verified 07/23/18 18:55) Unknown latex Allergy (Verified 07/23/18 18:55) Unknown procaine HCl [From Novocain] Allergy (Verified 07/23/18 18:55) Unknown Sulfa (Sulfonamide Antibiotics) Allergy (Verified 07/23/18 18:55) Hives venom-honey bee [bee venom (honey bee)] Allergy (Verified 07/23/18 18:55) Swelling Medications to take at Discharge Acetaminophen [Tylenol Tablet] 650 mg PO Q4H PRN PRN tablet 10/22/17 Ferrous Gluconate 324 mg PO DAILY 07/23/18 Vits [Prenatabs FA ] 1 tablet PO DAILY 07/23/18 Ibuprofen 600 mg PO 4X/DAY #30 tab 07/30/18 The following prescriptions were given: Ibuprofen 600 mg PO 4X/DAY #30 tab Please Follow Up With: John Paul Winkler MD When: 6 weeks Primary Care Physician: Albert Solitario MD [Primary Care Provider] - Test Results: Test results from this visit will be discussed in further detail at your follow- up appointment, if applicable. Proposed Discharge Date: 07/31/18
[2018-07-30] MEDS: Oxytocin 30 units/NS 500 ml 30 UNITS/500 ML IV.SOLN 334 UNITS IV (02:34)
--- NOTE | 2018-07-30 02:40 | PLAC_PTH ---
PATIENT: YONNY COOL LOC: [facility] U#:[id number] AGE/SX: 23/F ROOM: WP018 RE07/29/[address]: Dr. John Paul Winkler MD : 1995 BED: 1 DIS: 08/01/2018 SPEC #: [id number] RECD: 07/30/18 03:21 STATUS: JOHN REQ #: [id number] SHYLA: 07/30/18 02:[address]: John Paul Winkler DEPT: SURGICAL PATHOLOGY RECD BY: Fuentes Rosado ENTERED: 08/01/18 13:03 SP TYPE: PLACENTA OTHR DR: Dr. Albert Solitario MD Tissues: Placenta, NOS Procedures: Surgery Specimen Level V HEADER OPERATION: Vaginal delivery PRE-OP DIAGNOSIS: Maternal fever TISSUE SUBMITTED: Placenta MICROSCOPIC DIAGNOSIS Michelle placenta (384 gm): Umbilical cord - trivascular with acute funisitis. Placental membranes - acute chorioamnionitis and acute deciduitis, marked. Placental disc - remote infarcts, Dustin-Denny change, mildly increased intraparenchymal fibrin plaque and intravillous congestion. AM:jamey 08/02/18 COMMENT Case has been reviewed in consultation with Dr. Calderón who concurs with the above diagnosis. IDC:SJ MICROSCOPIC DESCRIPTION Slides are reviewed. GROSS DESCRIPTION SPECIMEN: PLACENTA / CLINICAL INFORMATION: A. Weight: 2.46 kg B. Gestational Age: 39 weeks C. Sex: Female PLACENTAL WEIGHT (POST FIXATION): 384 gm PLACENTAL DIMENSIONS: 15 x 15 x 2.5 cm PLACENTAL SHAPE: Usual ovoid PLACENTAL WEIGHT FOR GESTATIONAL AGE: Within 10-99th percentile MEMBRANES - Present A. Insertion: Marginal B. Site of rupture from edge: 8 cm from edge of placental disc C. Color of membrane: Godfrey-mucoidy D. Abnormalities: None UMBILICAL CORD - Present A. Color: Godfrey-mendoza B. Insertion: Marginal C. Length: 44 cm D. Diameter: 1 cm E. Number of vessels: Sections reveal two blood vessels toward the maternal end and three blood vessels toward the fecal end for about 3.3 cm from the maternal end and the cut cord shows three blood vessels. F. Abnormalities: None PLACENTAL DISC - Present A. Color of surface: Godfrey-mendoza B. surface abnormalities: None C. Maternal cotyledons: Intact with minimal tears D. Attached retro placental clot: No clot E. Cut surface: Dark red and spongy F. Lesions: Sections reveal four variable sized godfrey, indurated lesions measuring 1 to 2 cm in greatest dimension. G. Separate clot: Absent SECTIONS SUBMITTED: 1. Membrane roll 2. Cord, maternal end, lesion 3. Cord, end, lesion 4. Placental disc, and maternal surfaces, lesion 5. Placental disc, and maternal surfaces, lesion 6. Placental disc, and maternal surfaces, lesion SJ:jamey 08/01/18 TC:2 CPT: 06125
--- NOTE | 2018-07-30 02:49 | PCM.OPRPT ---
Vaginal Delivery Maternal Presentation: Medically Indicated Induction Admited at 39w5d ega for induction of labor secondary to gestational hypertension Method of Induction: Pitocin, Garcia Bulb Medical Reason for Induction: Gestational Hypertension Amniotic Membrane Rupture Type: Artificial Rupture of Membrane time: 1200 Amniotic Fluid Description: Clear Final YAMILET: 07/31/18 Final YAMILET Source: US <20 weeks Gestational age: 39 Weeks and 6 Days doctor who attended delivery (if requested by OB): Mimi Parsons Date of Procedure: 07/30/18 Pre-Operative Diagnosis: Labor Post-Operative Diagnosis: same Surgery/ Procedure Performed: Vacuum Assisted Vaginal Delivery Anesthesiologist: Moose Soriano Type of Anesthesia: Epidural Description of Procedure: Elena was admitted for induction of labor secondary to gestational hypertension. No evidence of preeclampsia. On admission she was one cm dilated. A garcia bulb catheter was placed transcervically and pitocin started. She progressed to 4 cm dilated at which time AROM was performed with clear fluid noted. She then progressed slowly to FD then pushed for about 1 1/2 hours to bring the vertex to +2 station. Due to maternal fatigue a Kiwi vacuum assisted delivery was performed. Over three contractions with gentle traction the vertex was brought to the perineum. There was a loose nuchal cord which was reduced at delivery. At delivery the mouth was suctioned with a bulb suction, the cord was clamped and cut. The baby was then handed off to the waiting nurse for evaluation by Dr. Silverio. Elena had developed at fever to 101.6 during labor which was reduced with tylenol. Cord blood gases were performed. The placenta was sent to pathology. Baby weight 5lb 14 oz. The placenta delivered spontaneously intact. A small posterior vaginal first degree tear was repaired with 2-0 vicryl. Presentation: Vertex Placental Delivery Description: Spontaneous Placenta Disposition: [facility] Percentage of Placenta Abruption: 0 Cord Vessel Description: 3 Vessels Nuchal Cord Compression: Without compression Cord Entanglement: Around neck x 1, loose Estimated Blood Loss: 200cc A gender: Female (1 minute): 6 (5 minute): 8 Episiotomy Description: None Laceration: Midline, Vaginal Extension/lac, 1st degree Medications given after delivery: IV Pitocin Complications: None
--- NOTE | 2018-07-30 02:57 | OP.PCM_ITS ---
Vaginal Delivery Maternal Presentation: Medically Indicated Induction Admited at 39w5d ega for induction of labor secondary to gestational hyperte nsion Method of Induction: Pitocin, Garcia Bulb Medical Reason for Induction: Gestational Hypertension Amniotic Membrane Rupture Type: Artificial Rupture of Membrane time: 1200 Amniotic Fluid Description: Clear Final YAMILET: 07/31/18 Final YAMILET Source: US <20 weeks Gestational age: 39 Weeks and 6 Days doctor who attended delivery (if requested by OB): Mimi Parsons Date of Procedure: 07/30/18 Pre-Operative Diagnosis: Labor Post-Operative Diagnosis: same Surgery/ Procedure Performed: Vacuum Assisted Vaginal Delivery Anesthesiologist: Moose Soriano Type of Anesthesia: Epidural Description of Procedure: Elena was admitted for induction of labor secondary to gestational hypertension. No evidence of preeclampsia. On admission she was one cm dilated. A garcia bulb catheter was placed transcervically and pitocin started. She progressed to 4 cm dilated at which time AROM was performed with clear fluid noted. She then progressed slowly to FD then pushed for about 1 1/2 hours to bring the vertex to +2 station. Due to maternal fatigue a Kiwi vacuum assisted delivery was performed. Over three contractions with gentle traction the vertex was brought to the perineum. There was a loose nuchal cord which was reduced at delivery. At delivery the mouth was suctioned with a bulb suction, the cord was clamped and cut. The baby was then handed off to the waiting nurse for evaluation by Dr. Silverio. Elena had developed at fever to 101.6 during labor which was reduced with tylenol. Cord blood gases were performed. The placenta was sent to pathology. Baby weight 5lb 14 oz. The placenta delivered spontaneously intact. A small posterior vaginal first degree tear was repaired with 2-0 vicryl. Presentation: Vertex Placental Delivery Description: Spontaneous Placenta Disposition: [facility] Percentage of Placenta Abruption: 0 Cord Vessel Description: 3 Vessels Nuchal Cord Compression: Without compression Cord Entanglement: Around neck x 1, loose Estimated Blood Loss: 200cc Infant A gender: Female (1 minute): 6 (5 minute): 8 Episiotomy Description: None Laceration: Midline, Vaginal Extension/lac, 1st degree Medications given after delivery: IV Pitocin Complications: None
[2018-07-30] MEDS: Oxytocin 30 units/NS 500 ml 30 UNITS/500 ML IV.SOLN 167 UNITS IV (03:04)
[2018-07-30] MEDS: Ibuprofen 600 MG Tablet PO ×2 (03:22→17:19)
[2018-07-30 03:23] LABS: Pathology Specimen OB SEE PATHOLOGY REPORT
[2018-07-30] MEDS: 0.9% Saline Lock 10 ML Syringe IV (04:47)
[2018-07-30 06:53] LABS: Hematocrit 31.9 % (37-47); Hemoglobin 11.1 g/dl (12.0-15.0); Mean Corp Hgb Conc 34.8 g/gl (32-36); Mean Corpuscular Hgb 31.2 pg (27.0-32.0); Mean Corpuscular Volume 89.6 fL (81-99); Mean Platelet Vol. 9.8 fl (6.2-12.0); Platelet Count 185 K/mm3 (150-450); RBC Distribution Width CV 12.9 % (11.6-14.6); Red Blood Count 3.56 M/mm3 (4.2-5.4)
[2018-07-30 06:55] LABS: Scan Indicated on CBC? Y/N YES- FLAGS NOTED
[2018-07-30 06:57] LABS: White Blood Count 35.5 K/mm3 (4.4-11.0)
[2018-07-30 07:17] LABS: Differential Comment SCAN
[2018-07-30] MEDS: Ferrous Gluconate 324 MG Tablet PO (08:24)
[2018-07-30] MEDS: Acetaminophen 500 MG Tablet 1000 MG PO (08:24)
--- NOTE | 2018-07-30 08:36 | PCM.PN.OB ---
Subjective: No specific complaints. Bleeding light. Intends to breast feed. Objective: AFeb VSS WBC elevated at 35 today Hgb appropriate - Physical Exam General: Alert, Oriented x3, Cooperative, No apparent distress Lungs: Clear to auscultation, Normal air movement Cardiovascular: Regular rate, Regular Rhythm Abdomen: Soft, Non Tender, Non-Distended, - - Fundus firm nontender Extremities: No edema Skin: No rashes Neurological: Neuro grossly intact Psych/Mental Status: Normal Affect Comment: Lochia light Vital Signs Temp Pulse Resp BP 98.2 F 95 20 H 116/59 L 07/30/18 05:52 07/30/18 05:52 07/30/18 05:52 07/30/18 05:52 Weight: 138 lb 14.259 oz Body Mass Index (BMI) 31.1 Intake and Output for Last 24 Hours 07/28/18 07/29/18 07/30/18 23:59 23:59 23:59 Intake Total 5383 / 5383 Output Total 935 / 935 Balance 4448 / 4448 Laboratory Tests Past 24 Hrs 07/29/18 07/30/18 07:30 06:30 WBC 35.5 H* RBC 3.56 L Hgb 11.1 L Hct 31.9 L MCV 89.6 MCH 31.2 MCHC 34.8 RDW 12.9 RDW Differential 41.0 Plt Count 185 MPV 9.8 Differential Comment SCAN Diff Path Review May foll Blood Type A POSITIVE Antibody Screen NEGATIVE Medical Necessity - Tobacco Use Smoking Status: Light Smoker (<10/day) Assessment/Plan All Active Problems (Last Updated 10/25/17 @ 15:26 by Magda Tenorio) Lymphadenopathy, inguinal (Acute) Doing well. Will repeat WBC tomorrow due to elevated. No signs of endomyometritis. BP good.
--- NOTE | 2018-07-30 10:09 | CASEMGMT ---
Addendum entered by Charla Muller 08/04/18 13:35: MECONIUM RESULTS REVIEWED THIS DAY. Original Note: Social Work Assessment Labor and Delivery Unit Date of Referral: 07/29/18 Time of Referral: 08:04 Referred By: JORGE NAYAK Date of Intervention: 07/30/18 Time of Intervention: 10:09A Reason for Referral: HX OF PTSD, MARIJUANA USE EARLY IN - NONE SINCE 12/04 History obtained from: MOB CHART, MOB AND FOB Household composition: MOB LIVES HOME WITH FOB/ IN A TRAILER. Medical History: MOB REPORTS HIGH BP DURING END OF . Educational Status: MOB REPORTS OBTAINED GED. Financial Status: FOB WORKS FOR THE DAILY RECORD. Infant Supplies: MOB IS . MOB AND FOB REPORT HAVE ALL NEEDS MET FOR BABY. Childcare/Caregiver(s): MOB CURRENTLY NOT WORKING AND WILL CARE FOR BABY. Transportation: NO ISSUES REPORTED. BOTH FOB AND MOB HAVE DATA REVIEW SPECIALIST'S LICENSE. Programs/Agencies Involved: MOB STATES WILL BE CALLING [facility] ON WEDNESDAY. Children Services/Legal Issues: N/A Behavioral Health Issues: Mental Health History: PATIENT ADMITS TO HX OF PTSD AND STATES WAS IN COUNSELING A CHILD. PATIENT VOICES NO CURRENT HX. Substance Use History: PATIENT DENIES SUBSTANCE ABUSE. Family History: FOSera'S FAMILY HAS HX OF ALCOHOL ABUSE. Drug Screens: PATIENT TESTED POSITIVE EARLY IN FOR MARIJUANA. DENIED ANY USE TO THIS WORKER. MECONIUM WAS SENT ON BABY. WILL NEED TO FOLLOW UP. Family/Social Stressors: NONE REPORTED. Support Systems: MOB VOICES GOOD SUPPORT FROM AND FAMILY. Depression/Shaken Baby/Safe Sleeping EDUCATION PROVIDED. 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 MOB ADMITS TO HX OF PTSD AND STATES WAS TREATED A CHILD. MOB VOICES NO CURRENT MENTAL HEALTH CONCERNS. EDUCATION PROVIDED ON DEPRESSION AND INFORMATION GIVEN. MOB DENIES ANY SUBSTANCE USE TO THIS WORKER. NURSING REPORTED MOB DID TEST POSITIVE FOR MARIJUANA EARLY ON IN . MECONIUM WAS SENT FOR TESTING. WILL FOLLOW UP ON RESULTS. MOB AND FOB APPROPRIATE WITH BABY AND DENY ANY ISSUES OR CONCERNS. BOTH VOICE HAVE ALL NEEDS MET FOR BABY. EDUCATION PROVIDED ON HELP ME GROW AND MOB DENIES NEED FOR REFERRAL. NURSING UPDATED ON ASSESSMENT. PLAN: HOME. MOB PROVIDED WITH INFORMATION ON [place] AND STATES WILL FOLLOW UP ON WEDNESDAY. WILL NEED TO REVIEW MECONIUM RESULTS AND POSSIBLE FOLLOW UP WITH [facility] PENDING RESULTS. No other services requested or indicated. -Charla Muller, INSTRUCTIONAL COORDINATOR, COMMUNITY ASSOCIATION MANAGER
[2018-07-30] MEDS: Prenatal Vits Tablet 1 TABLET PO (10:37)
[2018-07-30] MEDS: Senna/Docusate Sodium 1 Tablet PO (10:37)
[2018-07-30] MEDS: Dibucaine 30 GM Tube 1 APPLIC TOPICAL (10:38)
--- NOTE | 2018-07-30 12:01 | PCM.PN.OB ---
Subjective: Kemar is more painful and feels rectal pressure and pain. Passed small clot. Somewhat uptick in vaginal bleeding. Objective: Afeb VSS - Physical Exam General: Alert, Oriented x3, Cooperative Abdomen: Soft, Non Tender, Non-Distended, - - Fundus firm nontender Comment: Vaginal exam reveals 4cm left vaginal sidewall hematoma Vital Signs Temp Pulse Resp BP Pulse Ox 97.3 F L 96 18 108/82 H 98 07/30/18 11:13 07/30/18 11:13 07/30/18 11:13 07/30/18 11:24 07/30/18 11:13 Oxygen Delivery Method Room Air Weight: 138 lb 14.259 oz Body Mass Index (BMI) 31.1 Intake and Output for Last 24 Hours 07/28/18 07/29/18 07/30/18 23:59 23:59 23:59 Intake Total 5383 / 5383 25 / 25 Output Total 935 / 935 150 / 150 Balance 4448 / 4448 -125 / -125 Laboratory Tests Past 24 Hrs 07/30/18 06:30 WBC 35.5 H* RBC 3.56 L Hgb 11.1 L Hct 31.9 L MCV 89.6 MCH 31.2 MCHC 34.8 RDW 12.9 RDW Differential 41.0 Plt Count 185 MPV 9.8 Differential Comment SCAN Diff Path Review May foll Medical Necessity - Tobacco Use Smoking Status: Light Smoker (<10/day) Assessment/Plan All Active Problems (Last Updated 10/25/17 @ 15:26 by Magda Tenorio) Lymphadenopathy, inguinal (Acute) US performed at the bedside with no obvious retained placenta or large clot. Vaginal exam reveals left sidewall hematoma. Will observe this for now. Will provide pain medication. Will check hgb level in 2 hours.
[2018-07-30 14:22] LABS: Hemoglobin 9.5 g/dl (12.0-15.0); Mean Corp Hgb Conc 35.2 g/gl (32-36); Mean Corpuscular Hgb 31.5 pg (27.0-32.0); Mean Corpuscular Volume 89.4 fL (81-99); Mean Platelet Vol. 9.1 fl (6.2-12.0); Platelet Count 185 K/mm3 (150-450); RBC Distribution Width CV 13.2 % (11.6-14.6); Red Blood Count 3.02 M/mm3 (4.2-5.4)
[2018-07-30 14:23] LABS: Differential Indicated MANUAL DIFF; POSITIVE COUNT YES; POSITIVE DIFFERENTIAL NO; POSITIVE MORPHOLOGY YES
[2018-07-30 14:24] LABS: White Blood Count 37.4 K/mm3 (4.4-11.0)
[2018-07-30 14:35] LABS: Lymphocyte 5 % (19-41); Monocyte 4 % (0-10); Neutrophil-Segmented 91 % (47-70); Platelet Estimate ADEQUATE (ADEQ); Red Cell Morphology NORM C+C NORMAL (NORM C&C); Total Cells Counted 100 (MANUAL DIFF)
[2018-07-30 14:37] LABS: Absolute Lymphocyte Count 1.87 X10^3/ul (0.83-4.51)
[2018-07-30] MEDS: oxyCODONE 5 MG Tablet PO ×2 (14:49→19:00)
[2018-07-30] MEDS: Methylergonovine 0.2 MG/ML Ampul IM (17:57)
--- NOTE | 2018-07-30 19:22 | NURSING ---
Bladder scan performed d/t low urine output; pt unable to maintain proper position for scan.
--- NOTE | 2018-07-30 19:44 | NURSING ---
Addendum entered by Franca Monroe 07/30/18 20:54: dr paez found a left vaginal hematoma Original Note: at 1155, dr paez called into room to see pt after increased lochia and pt's extreme perineal/vaginal/rectal pain and unable to sit on her bottom without having pain at the level 10/10. pt also bearing down off and on almost appearing to be spams from vaginal area. dr paez completing ultrasound and vaginal exam where a left vaginal hematoma. order for nubain and cbcd at 1400. dr paez aware of amount of pt's increased lochia. at 1200, dr paez left pt's room. at 1208, nubain 5m slow ivp given at 1215, more clots expelled as pt bears down. estimated 135cc on analisa pad.
[2018-07-31] VITALS (11 sets, daily range): BP systolic 110–125; BP diastolic 53–76; PULSE 90–131; RESP 16–20; TEMP 36.3–37.5; O2SAT 96–98
--- NOTE | 2018-07-31 00:37 | NURSING ---
At 2300 pt called this RN to room and asking if she could go outside to smoke. This RN spoke with pt about not recommending removing IV because of bleeding issues and increased WBCs and pt states she is okay with removing it. RN then removed IV and pt outside to smoke.
[2018-07-31] MEDS: Ibuprofen 600 MG Tablet PO (03:48)
[2018-07-31 05:14] LABS: Absolute Lymphocyte Count 3.27 X10^3/ul (0.83-4.51); Absolute Neutrophil Count 20.2 X10^3/uL (2.0-7.7); Basophil# 0.02 X10^3/uL; Basophil% 0.1 % (0-1); Eosinophil# 0.09 X10^3/uL; Eosinophils% 0.3 % (0-5); Hematocrit 19.5 % (37-47); Hemoglobin 6.7 g/dl (12.0-15.0); Lymphocyte # 3.27 X10^3/ul (4.0); Lymphocyte % 12.5 % (19-41); Mean Corp Hgb Conc 34.4 g/gl (32-36); Mean Corpuscular Hgb 30.9 pg (27.0-32.0); Mean Corpuscular Volume 89.9 fL (81-99); Monocyte% 9.2 % (0-10); Neutrophil # 20.24 X10^3/uL (2.7-7.7); Neutrophil % 77.5 % (47-70); Platelet Count 174 K/mm3 (150-450); RBC Distribution Width CV 12.9 % (11.6-14.6); RBC Distribution Width SD 39.9 fl (35.1-43.9); Red Blood Count 2.17 M/mm3 (4.2-5.4); White Blood Count 26.1 K/mm3 (4.4-11.0)
[2018-07-31 05:15] LABS: Differential Indicated SCAN CRITERIA MET; POSITIVE COUNT NO; POSITIVE DIFFERENTIAL YES; POSITIVE MORPHOLOGY YES
[2018-07-31 05:34] LABS: Differential Comment SCANNED
[2018-07-31] MEDS: Prenatal Vits Tablet 1 TABLET PO (07:49)
[2018-07-31] MEDS: Ferrous Gluconate 324 MG Tablet PO (07:49)
--- NOTE | 2018-07-31 08:26 | PCM.PROGNOTE ---
Subjective: Seems a little more comfortable today. Able to ambulate. Voiding. Tolerating PO. No complaints of dizziness. Objective: AFeb VSS Hgb dropped to 6.7 this morning from 9.5 yesterday afternoon. - Physical Exam General: Alert, Oriented x3, Cooperative, No apparent distress Lungs: Clear to auscultation, Normal air movement Cardiovascular: Regular rate, Regular Rhythm Abdomen: Soft, Non Tender, Non-Distended, - - Fundus firm nontender Extremities: No edema Skin: No rashes Neurological: Neuro grossly intact Psych/Mental Status: Normal Affect Comment: Lochia decreased. Swelling noted in buttocks and vulva. Vital Signs Temp Pulse Resp BP Pulse Ox 97.7 F L 105 H 20 H 110/63 98 07/31/18 08:19 07/31/18 08:19 07/31/18 08:19 07/31/18 08:07/31/18 08:19 Oxygen Delivery Method Room Air Weight: 138 lb 14.259 oz Body Mass Index (BMI) 31.1 Intake and Output for Last 24 Hours 07/29/18 07/30/18 07/31/18 23:59 23:59 23:59 Intake Total 5383 / 5383 25 / 25 Output Total 935 / 935 1865 / 1865 200 / 200 Balance 4448 / 4448 -1840 / -1840 -200 / -200 Laboratory Tests Past 24 Hrs 07/30/18 07/31/18 14:10 04:40 WBC 37.4 H* 26.1 H RBC 3.02 L 2.17 L Hgb 9.5 L 6.7 L Hct 27.0 L 19.5 L MCV 89.4 89.9 MCH 31.5 30.9 MCHC 35.2 34.4 RDW 13.2 12.9 RDW Differential 43.0 39.9 Plt Count 185 174 MPV 9.1 9.0 Immature Gran % (Auto) 0.400 Neut % (Auto) Not Reportable 77.5 H Lymph % (Auto) 12.5 L [place] % (Auto) 9.2 Eos % (Auto) 0.3 Baso % (Auto) 0.1 Absolute Neuts (auto) 34.0 H 20.2 H Absolute Lymphs (auto) 1.87 3.27 Total Counted 100 Not Reportable Neutrophils % (Manual) 91 H Lymphocytes % (Manual) 5 L Monocytes % (Manual) 4 Differential Comment SCANNED Diff Path Review May foll May foll Platelet Estimate ADEQUATE RBC Morphology NORM C+C Medical Necessity - Tobacco Use Smoking Status: Light Smoker (<10/day) Assessment/Plan All Active Problems (Last Updated 10/25/17 @ 15:26 by Magda Tenorio) Lymphadenopathy, inguinal (Acute) Subjectively better today but continues to have decrease in hgb level. Suspect pelvic hematoma. WBC decreased but still elevated at 26. No signs of infection. Given low hgb level will repeat hgb level this afternoon. If drops further will consider transfusion. Continue routine PP care and pain medication. May also have bruised sacrum.
[2018-07-31] MEDS: oxyCODONE 5 MG Tablet PO ×4 (08:32→23:34)
[2018-07-31] MEDS: Senna/Docusate Sodium 1 Tablet PO (08:34)
[2018-07-31 14:11] LABS: Absolute Lymphocyte Count 2.99 X10^3/ul (0.83-4.51); Absolute Neutrophil Count 16.7 X10^3/uL (2.0-7.7); Basophil# 0.03 X10^3/uL; Basophil% 0.1 % (0-1); Eosinophil# 0.16 X10^3/uL; Eosinophils% 0.7 % (0-5); Hemoglobin 6.3 g/dl (12.0-15.0); Lymphocyte # 2.99 X10^3/ul (4.0); Lymphocyte % 13.8 % (19-41); Mean Corpuscular Hgb 31.7 pg (27.0-32.0); Mean Corpuscular Volume 90.5 fL (81-99); Mean Platelet Vol. 8.7 fl (6.2-12.0); Monocyte# 1.76 X10^3/uL; Monocyte% 8.1 % (0-10); Neutrophil # 16.67 X10^3/uL (2.7-7.7); Platelet Count 173 K/mm3 (150-450); RBC Distribution Width CV 13.8 % (11.6-14.6); RBC Distribution Width SD 45.2 fl (35.1-43.9); Red Blood Count 1.99 M/mm3 (4.2-5.4); White Blood Count 21.7 K/mm3 (4.4-11.0)
[2018-07-31 14:13] LABS: Differential Indicated SCAN CRITERIA MET; POSITIVE COUNT NO; POSITIVE DIFFERENTIAL YES; POSITIVE MORPHOLOGY YES
[2018-07-31 14:27] LABS: Differential Comment SCANNED
[2018-07-31] MEDS: 0.9% Normal Saline 1,000 ML 15 ML IV (17:30)
--- NOTE | 2018-07-31 18:21 | PN.OBGYN_ITS ---
Subjective: Feeling fatigued, soreness continues in saddle area. Objective: Tachycardic in 120s BP stable. Hgb decreased to 6.3. WBC decreasing. - Physical Exam General: Alert, Oriented x3, Cooperative, No apparent distress Lungs: Clear to auscultation, Normal air movement Cardiovascular: Regular rate, Regular Rhythm Abdomen: Soft, Non Tender, Non-Distended, - - Fundus firm nontender Extremities: No edema Skin: No rashes Neurological: Neuro grossly intact Psych/Mental Status: Normal Affect Comment: Lochia light Vital Signs Temp Pulse Resp BP Pulse Ox 99.5 F H 125 H 18 123/72 H 97 07/31/18 17:33 07/31/18 17:33 07/31/18 17:33 07/31/18 17:33 07/31/18 17:33 Oxygen Delivery Method Room Air Weight: 138 lb 14.259 oz Body Mass Index (BMI) 31.1 Intake and Output for Last 24 Hours 07/29/18 07/30/18 07/31/18 23:59 23:59 23:59 Intake Total 5383 / 5383 25 / 25 0 / 0 Output Total 935 / 935 1865 / 1865 200 / 200 Balance 4448 / 4448 -1840 / -1840 -200 / -200 Laboratory Tests Past 24 Hrs 07/29/18 07/31/18 07/31/18 07:30 04:40 13:50 WBC 26.1 H 21.7 H RBC 2.17 L 1.99 L Hgb 6.7 L 6.3 L Hct 19.5 L 18.0 L MCV 89.9 90.5 MCH 30.9 31.7 MCHC 34.4 35.0 RDW 12.9 13.8 RDW Differential 39.9 45.2 H Plt Count 174 173 MPV 9.0 8.7 Immature Gran % (Auto) 0.400 0.300 Neut % (Auto) 77.5 H 77.0 H Lymph % (Auto) 12.5 L 13.8 L [place] % (Auto) 9.2 8.1 Eos % (Auto) 0.3 0.7 Baso % (Auto) 0.1 0.1 Absolute Neuts (auto) 20.2 H 16.7 H Absolute Lymphs (auto) 3.27 2.99 Total Counted Not Reportable Not Reportable Differential Comment SCANNED SCANNED Diff Path Review May foll Crossmatch See Detail Medical Necessity - Tobacco Use Smoking Status: Light Smoker (<10/day) Assessment/Plan All Active Problems (Last Updated 10/25/17 @ 15:26 by Magda Tenorio) Lymphadenopathy, inguinal (Acute) Given continued mild decrease in hgb and tachycardia will transfuse two units of PRBC. Will recheck hgb level in the am.
[2018-07-31] MEDS: Acetaminophen 500 MG Tablet 1000 MG PO (20:10)
--- NOTE | 2018-07-31 20:13 | NURSING ---
BL wheezing in lungs cleared with forceful cough.
[2018-08-01 00:50] VITALS: BP 115/61; PULSE 97; RESP 18; TEMP 36.5; O2SAT 99
[2018-08-01] MEDS: Ibuprofen 600 MG Tablet PO (05:19)
[2018-08-01 05:59] VITALS: BP 125/66; PULSE 104; RESP 16; O2SAT 96
--- NOTE | 2018-08-01 06:17 | DS.PCM_ITS ---
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 Pitocin induction resulted in uncomplicated vacuum assisted vaginal delivery. After delivery she had some bleeding more than expected and significant pelvic/sacral pain. Likely with vaginal/pelvic hematoma. No significant vaginal laceration at delivery. Due to low blood count with tachycardia she was given a transfusion of 2 units of PRBC. Her pain was managed with oxycodone and motrin. Otherwise had normal pp course and was discharged home on PP day#2. - Physical Exam Vital Signs Temp Pulse Resp BP Pulse Ox 97.7 F L 97 18 115/61 99 08/01/18 00:50 08/01/18 00:50 08/01/18 00:50 08/01/18 00:50 08/01/18 00:50 Oxygen Delivery Method Room Air Weight: 138 lb 14.259 oz Body Mass Index (BMI) 31.1 Intake and Output for Last 24 Hours 07/30/18 07/31/18 08/01/18 23:59 23:59 23:59 Intake Total 25 / 25 1620 / 1620 Output Total 1865 / 1865 200 / 200 Balance -1840 / -1840 1420 / 1420 Laboratory Tests Past 24 Hrs 07/29/18 07/31/18 07:30 13:50 WBC 21.7 H RBC 1.99 L Hgb 6.3 L Hct 18.0 L MCV 90.5 MCH 31.7 MCHC 35.0 RDW 13.8 RDW Differential 45.2 H Plt Count 173 MPV 8.7 Immature Gran % (Auto) 0.300 Neut % (Auto) 77.0 H Lymph % (Auto) 13.8 L [place] % (Auto) 8.1 Eos % (Auto) 0.7 Baso % (Auto) 0.1 Absolute Neuts (auto) 16.7 H Absolute Lymphs (auto) 2.99 Total Counted Not Reportable Differential Comment SCANNED Crossmatch See Detail Discharge Diet: No Restrictions Discharge Activity: Return to Normal Activity, May Drive, May not drive while taking narcotic pain medications. Return to work on:: 10/03/18 May shower in (days): 0 May resume sexual activity in: 6 weeks Call your doctor if your incision/area has: Sudden Increased Bleeding, Increased Pain/ Swelling, Foul Smelling Discharge Call your doctor if you observe: Fever of 101 or Higher, Inability to urinate, Inability to have a bowel movement, Using more than one pad per hour, Shortness of breath, Chest pain, Calf discomfort, Uncontrolled pain Cleanse incision/area with: Soap & Water Home Medications: Medications to take at Discharge Acetaminophen [Tylenol Tablet] 650 mg PO Q4H PRN PRN tablet 10/22/17 Ferrous Gluconate 324 mg PO DAILY 07/23/18 Vits [Prenatabs FA ] 1 tablet PO DAILY 07/23/18 Ibuprofen 600 mg PO 4X/DAY #30 tab 07/30/18 Oxycodone [Oxyir] 5 - 10 mg PO Q4H PRN PRN 7 Days #28 tab 07/31/18 Following Prescrptions Were Given to Patient: Oxycodone [Oxyir] 5 - 10 mg PO Q4H PRN PRN 7 Days #28 tab PRN Reason: Mod-Severe Pain (4-10) Ibuprofen 600 mg PO 4X/DAY #30 tab Primary Care Physician: Albert Solitario MD [Primary Care Provider] - Please Follow Up With: John Paul Winkler MD When: 6 weeks Disposition: Home Minutes spent on discharge:: 15 Patient Condition:: Good Medical Necessity - Tobacco Use Smoking Status: Light Smoker (<10/day) Meaningful Use Info Meaningful Use Diagnoses (Choose all that apply): None applicable
[2018-08-01 06:39] LABS: Absolute Lymphocyte Count 3.11 X10^3/ul (0.83-4.51); Absolute Neutrophil Count 12.8 X10^3/uL (2.0-7.7); Basophil# 0.04 X10^3/uL; Basophil% 0.2 % (0-1); Eosinophil# 0.29 X10^3/uL; Eosinophils% 1.6 % (0-5); Hematocrit 24.7 % (37-47); Hemoglobin 8.5 g/dl (12.0-15.0); Lymphocyte # 3.11 X10^3/ul (4.0); Lymphocyte % 17.4 % (19-41); Mean Corp Hgb Conc 34.4 g/gl (32-36); Mean Corpuscular Hgb 30.8 pg (27.0-32.0); Mean Corpuscular Volume 89.5 fL (81-99); Mean Platelet Vol. 9.2 fl (6.2-12.0); Monocyte# 1.59 X10^3/uL; Monocyte% 8.9 % (0-10); Neutrophil # 12.81 X10^3/uL (2.7-7.7); Neutrophil % 71.6 % (47-70); Platelet Count 190 K/mm3 (150-450); RBC Distribution Width SD 40.6 fl (35.1-43.9); Red Blood Count 2.76 M/mm3 (4.2-5.4); White Blood Count 17.9 K/mm3 (4.4-11.0)
[2018-08-01 06:46] LABS: Differential Indicated SCAN CRITERIA MET; POSITIVE COUNT NO; POSITIVE DIFFERENTIAL YES; POSITIVE MORPHOLOGY NO
--- NOTE | 2018-08-01 06:59 | PCM.PN.OB ---
Subjective: Vulvar and rectal/sacral soreness. Bleeding light. Breast feeding. No dizziness. No N/V. Tolerating PO. Voiding. Objective: Afeb VSS Hgb with appropriate rise after transfusion. - Physical Exam General: Alert, Oriented x3, Cooperative, No apparent distress Lungs: Clear to auscultation, Normal air movement Cardiovascular: Regular rate, Regular Rhythm Abdomen: Soft, Non Tender, Non-Distended, - - Fundus firm nontender Extremities: No edema Skin: No rashes Neurological: Neuro grossly intact Psych/Mental Status: Normal Affect Comment: Lochia light. Vulvar and perirectal swelling present Vital Signs Temp Pulse Resp BP Pulse Ox 97.7 F L 104 H 16 125/66 H 96 08/01/18 00:50 08/01/18 05:59 08/01/18 05:59 08/01/18 05:59 08/01/18 05:59 Oxygen Delivery Method Room Air Weight: 138 lb 14.259 oz Body Mass Index (BMI) 31.1 Intake and Output for Last 24 Hours 07/30/18 07/31/18 08/01/18 23:59 23:59 23:59 Intake Total 25 / 25 1620 / 1620 Output Total 1865 / 1865 200 / 200 Balance -1840 / -1840 1420 / 1420 Laboratory Tests Past 24 Hrs 07/29/18 07/31/18 08/01/18 07:30 13:50 06:01 WBC 21.7 H 17.9 H RBC 1.99 L 2.76 L Hgb 6.3 L 8.5 L Hct 18.0 L 24.7 L MCV 90.5 89.5 MCH 31.7 30.8 MCHC 35.0 34.4 RDW 13.8 13.0 RDW Differential 45.2 H 40.6 Plt Count 173 190 MPV 8.7 9.2 Immature Gran % (Auto) 0.300 0.300 Neut % (Auto) 77.0 H 71.6 H Lymph % (Auto) 13.8 L 17.4 L [place] % (Auto) 8.1 8.9 Eos % (Auto) 0.7 1.6 Baso % (Auto) 0.1 0.2 Absolute Neuts (auto) 16.7 H 12.8 H Absolute Lymphs (auto) 2.99 3.11 Total Counted Not Reportable Pending Differential Comment SCANNED Crossmatch See Detail Medical Necessity - Tobacco Use Smoking Status: Light Smoker (<10/day) Assessment/Plan All Active Problems (Last Updated 10/25/17 @ 15:26 by Magda Tenorio) Lymphadenopathy, inguinal (Acute) Improved today. Hgb with appropriate rise after transfusion. Still painful but this is managed reasonably with ibuprofen and oxycodone. Cleared for discharge home today. Home going instructions and warnings given.
[2018-08-01 07:08] LABS: Differential Comment SCANNED; Toxic Granulation 2+
[2018-08-01 07:24] VITALS: BP 125/70; PULSE 94; RESP 16; TEMP 36.6
[2018-08-01 08:06] VITALS: PULSE 94; RESP 16
[2018-08-01] MEDS: Ferrous Gluconate 324 MG Tablet PO (08:49)
[2018-08-01] MEDS: Prenatal Vits Tablet 1 TABLET PO (08:49)
[2018-08-01] MEDS: Senna/Docusate Sodium 1 Tablet PO (08:50)
[2018-08-01] MEDS: oxyCODONE 5 MG Tablet PO (08:50)
[2018-08-01] MEDS: Dibucaine 30 GM Tube 1 APPLIC TOPICAL (10:03)
--- NOTE | 2018-08-01 11:40 | NURSING ---
THis licensed nursing assistant reviewed the documentation completed by Susie Magaña student nurse and it is complete.
[2018-08-01 13:14] LABS: Pathologist Review Reviewed
[2018-08-01 13:14] LABS: Pathologist Review Reviewed
[2018-08-01 13:20] LABS: Pathologist Review Reviewed
[2018-08-02 14:06] LABS: Pathologist Review Reviewed
== END 2018-08-01 10:40 | disposition home or self-care (01) | DRG 806 ==
PROVIDERS: Admitting Provider Obstetrics & Gynecology; Family Provider Family Medicine; PCP Family Medicine; Referring Provider Obstetrics & Gynecology; Visit Provider Obstetrics & Gynecology
DX: O75.2 Pyrexia during labor, not elsewhere classified (principal); O71.4 Obstetric high vaginal laceration alone; Z37.0 Single live birth; O72.2 Delayed and secondary postpartum hemorrhage; O13.4 Gestational [pregnancy-induced] hypertension without significant proteinuria, complicating childbirth; O69.81X0 Labor and delivery complicated by cord around neck, without compression, not applicable or unspecified; O99.334 Smoking (tobacco) complicating childbirth; Z3A.39 39 weeks gestation of pregnancy
CPT/HCPCS: 59025; 59050; 85025; 85027; 86850; 86900; 86920; 88307; 99218; J7030; J7120; P9016; A4216; G0378

== ENCOUNTER → 2018-08-16 | Outpatient (CLI) | payer MEDICARE, MEDICAID, SELFPAY ==
[2018-07-29 07:28] VITALS: BMI 31.1
[2018-08-16 16:06] LABS: Hematocrit 36.5 % (37-47); Hemoglobin 12.4 g/dl (12.0-15.0); Mean Corpuscular Hgb 30.5 pg (27.0-32.0); Mean Corpuscular Volume 89.7 fL (81-99); Mean Platelet Vol. 9.1 fl (6.2-12.0); Platelet Count 478 K/mm3 (150-450); RBC Distribution Width SD 41.8 fl (35.1-43.9); Red Blood Count 4.07 M/mm3 (4.2-5.4)
[2018-08-16 16:09] LABS: Scan Indicated on CBC? Y/N NO
[2018-08-16 16:16] LABS: International Normalized Ratio 1.1; Prothrombin Time (Protime)PT. 13.6 SECONDS (11.7-14.9)
[2018-08-16 16:17] LABS: Partial Thromboplast Time 26.4 Seconds (24.1-36.2)
[2018-08-16 16:24] LABS: AST(SGOT) 13 U/L (15-37); Alanine Aminotransfer ALT/SGPT 21 U/L (13-56); Creatinine, Serum 0.87 mg/dL (0.55-1.02); Uric Acid 4.4 mg/dL (2.6-6.0)
[2018-08-16 16:25] LABS: EST Glomerular Filtration Rate 87 mL/min (>60); Est Glom Filt Rate - Afr Amer 105 mL/min (>60)
== END | disposition home or self-care (01) ==
LOC: WOBLAB 14:30
PROVIDERS: Visit Provider Obstetrics & Gynecology
DX: O13.5 Gestational [pregnancy-induced] hypertension without significant proteinuria, complicating the puerperium (principal); Z3A.00 Weeks of gestation of pregnancy not specified
CPT/HCPCS: 36415; 82565; 84450; 84460; 84550; 85027; 85610; 85730

== ENCOUNTER → 2018-08-18 | Outpatient (CLI) | payer MEDICARE, MEDICAID, SELFPAY ==
[2018-07-29 07:28] VITALS: BMI 31.1
[2018-08-18 14:28] LABS: 24 Hour Urine Protein 123.5 mg/24HR (<150 MG/24HR); 24HR. UA Prot. Total Volume 275 mL; Urine Protein (24 Hour) 44.9 mg/dL (<11.9)
== END | disposition home or self-care (01) ==
LOC: LABSPEC 14:07
PROVIDERS: Visit Provider Obstetrics & Gynecology
DX: O13.5 Gestational [pregnancy-induced] hypertension without significant proteinuria, complicating the puerperium (principal); Z3A.00 Weeks of gestation of pregnancy not specified
CPT/HCPCS: 81050; 84156

== ENCOUNTER → 2018-08-23 | Outpatient (CLI) | payer MEDICARE, MEDICAID, SELFPAY ==
[2018-07-29 07:28] VITALS: BMI 31.1
--- NOTE | 2018-08-23 14:56 | RAD_ITS ---
STUDY: X-RAY - ABDOMEN/PELVIS REASON FOR EXAM: Female, 23 years old. Kidney stones TECHNIQUE: Single AP view of the abdomen / pelvis. COMPARISON: None. FINDINGS: Surgical clips in the right lower abdomen. 2 mm density projecting over the level of the left inferior renal pole. There is an unremarkable bowel gas pattern. There is no demonstrated free abdominal air. Normal soft tissue structures. Normal visualized osseous structures. RAD/Abdomen Single View IMPRESSION: 2 mm inferior renal pole calculus possible. There is no obstruction. Post surgical changes. Electronically Signed: Ludy Guerra MD at 6:38 EDT , Service support ,
== END | disposition home or self-care (01) ==
LOC: RAD.FUTURE 14:37
PROVIDERS: Referring Provider Nurse Practitioner Adult Health; Visit Provider Nurse Practitioner Adult Health
DX: N20.0 Calculus of kidney (principal)
CPT/HCPCS: 74018

== ENCOUNTER 2019-05-16 16:53 | Emergency (ER) | payer MEDICARE, SELFPAY ==
[2019-05-16 16:55] VITALS: BP 124/81; PULSE 74; RESP 16; TEMP 36.8; O2SAT 97; BMI 23.5
--- NOTE | 2019-05-16 17:44 | ED.DCSUM_ITS ---
- ER Visit Summary Date of Service: 05/16/19 Chief Complaint: Back pain History of Present Illness: The patient is a 24 F with no primary care physician. 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 She states is a sharp pain is 10 on 10 at worst and 5-10 currently. Is worsened by movement. Is relieved by remaining still. She is not taking anything for pain. It radiates to her right buttock. She denies any numbness or weakness. No problems with her bowels or bladder. No groin numbness. She denies any other trauma. No fall, MVA, or change in activity. No red flags. Physical Examination: Vitals: Stable. Afebrile. General: A&O x 3. NAD. Cardiovascular exam: Regular rate and rhythm, no murmur, rub or gallop. Respiratory exam: Clear to auscultation bilaterally. No wheezes or stridor. Abdominal exam: Soft, nontender, nondistended, normal bowel sounds. No peritoneal signs. Back: Diffuse moderate tenderness to palpation over the lumbar spine and the paraspinous musculature in the lumbar region. No point tenderness. Negative straight leg bilaterally. 5/5 DF, PF, EHL bilaterally. Normal sensation to light touch throughout. Extremity: No clubbing, cyanosis, or edema. Emergency Department Course and Treatment: Patient was treated with naproxen. She is resting comfortably. Treatment Plan: Symptomatic care with a TENS unit, warm compresses, stretches was discussed. She will be discharged naproxen. Instructed to follow-up Dr. english to in 1 week if not improving. The signs and symptoms of cauda equina syndrome were discussed. She is instructed to return for these. Disposition: To home in improved and stable condition. Impression: 1. Low back pain, acute. This note was generated with [employer] dictation software. It may contain incorrect words, spelling, and punctuation that were not noted in review of the chart prior to signing ED Disposition - Plan for ED Patient: Disposition: Home or Assisted Living Instructions: BACK PAIN w/ SCIATICA Prescriptions: Naproxen [Naprosyn] 500 mg PO BID #14 tab Prescription Printed Referrals: Fartun Damico MD [STAFF PHYSICIAN] - 1 Week
[2019-05-16] MEDS: Naproxen 250 MG Tablet 500 MG PO (17:54)
[2019-05-16 18:06] VITALS: RESP 16
== END 2019-05-16 18:07 | disposition home or self-care (01) ==
LOC: ED 18:03
PROVIDERS: Emergency Provider Emergency Medicine
DX: M54.5 Low back pain (principal); Z72.0 Tobacco use
CPT/HCPCS: 99283

== ENCOUNTER → 2020-08-12 | Outpatient (CLI) | payer MEDICARE, SELFPAY ==
[2020-08-12 10:17] VITALS: BMI 22.1
[2020-08-12 13:53] LABS: Amphetamine Urine VISTA NEGATIVE (<1000 ng/mL); Barbiturate Urine VISTA NEGATIVE (< 200 ng/mL); Benzodiazepine Urine VISTA NEGATIVE (< 200 ng/mL); Cocaine Urine VISTA NEGATIVE (< 300 ng/mL); Ecstacy Urine VISTA NEGATIVE (< 500 ng/mL); Methadone Urine VISTA NEGATIVE (< 300 ng/mL); PCP Urine VISTA NEGATIVE (< 25 ng/mL); THC Urine VISTA NEGATIVE (< 50 ng/mL); Vista UDS pH Range 6
[2020-08-14 03:07] LABS: Chlamydia By Nucleic Acid AMP Negative (Negative)
[2020-08-14 12:45] LABS: Gonococcus By Nucleic Acid AMP Negative (Negative)
== END | disposition home or self-care (01) ==
LOC: LABSPEC 12:58
PROVIDERS: Referring Provider Obstetrics & Gynecology; Visit Provider Obstetrics & Gynecology
DX: O09.90 Supervision of high risk pregnancy, unspecified, unspecified trimester (principal); Z3A.00 Weeks of gestation of pregnancy not specified
CPT/HCPCS: 80307; 87086; 87491; 87591

== ENCOUNTER → 2020-08-29 12:08 | Outpatient (CLI) | payer MEDICARE, SELFPAY ==
[2020-08-29 11:30] VITALS: BMI 22.0
[2020-08-29 12:53] LABS: Absolute Lymphocyte Count 2.28 X10^3/uL (0.83-4.51); Absolute Neutrophil Count 6.7 X10^3/uL (2.0-7.7); Basophil# 0.05 X10^3/uL; Basophil% 0.5 % (0-1); Eosinophil# 0.18 X10^3/uL; Eosinophils% 1.8 % (0-5); Hematocrit 36.9 % (37-47); Hemoglobin 12.6 g/dL (12.0-15.0); Lymphocyte # 2.28 X10^3/ul (0.83-4.51); Lymphocyte % 22.7 % (19-41); Mean Corp Hgb Conc 34.1 g/dL (32-36); Mean Corpuscular Hgb 29.4 pg (27.0-32.0); Monocyte# 0.87 X10^3/uL; Monocyte% 8.7 % (0-10); NRBC Flagged by Analyzer 0 % (0-5); Neutrophil # 6.65 X10^3/uL (2.7-7.7); Neutrophil % 66.1 % (47-70); Platelet Count 228 K/mm3 (150-450); RBC Distribution Width CV 12.1 % (11.6-14.6); Red Blood Count 4.29 M/mm3 (4.2-5.4); White Blood Count 10.1 K/mm3 (4.4-11.0)
[2020-08-29 13:51] LABS: NATERA MAILED SPECIMEN
[2020-08-29 13:55] LABS: Hepatitis B Surface Antigen Non-Reactive (Nonreactive); Hepatitis C Antibody Non-Reactive (Nonreactive); Rubella IgG Reactive (Nonreactive); Syphilis Antibodies Non-reactive
== END ==
PROVIDERS: Referring Provider Obstetrics & Gynecology; Visit Provider Obstetrics & Gynecology
DX: O09.90 Supervision of high risk pregnancy, unspecified, unspecified trimester (principal); Z3A.00 Weeks of gestation of pregnancy not specified
CPT/HCPCS: 85025; 86762; 86780; 86803; 86850; 86900; 86901; 87340

== ENCOUNTER → 2020-10-10 | Outpatient (CLI) | payer MEDICARE, SELFPAY ==
[2020-10-10 14:30] VITALS: BMI 23.1
== END | disposition home or self-care (01) ==
LOC: LABSPEC 16:46
PROVIDERS: Visit Provider Obstetrics & Gynecology
DX: N89.8 Other specified noninflammatory disorders of vagina (principal)
CPT/HCPCS: 87070; 87205

== ENCOUNTER → 2020-12-26 15:22 | Outpatient (CLI) | payer MEDICARE, SELFPAY ==
[2020-12-26 15:45] LABS: Absolute Lymphocyte Count 1.89 X10^3/uL (0.83-4.51); Absolute Neutrophil Count 9.1 X10^3/uL (2.0-7.7); Basophil# 0.05 X10^3/uL; Basophil% 0.4 % (0-1); Eosinophil# 0.15 X10^3/uL; Eosinophils% 1.2 % (0-5); Hematocrit 31.2 % (37-47); Hemoglobin 10.7 g/dL (12.0-15.0); Lymphocyte # 1.89 X10^3/ul (0.83-4.51); Lymphocyte % 15.5 % (19-41); Mean Corp Hgb Conc 34.3 g/dL (32-36); Mean Corpuscular Hgb 31.4 pg (27.0-32.0); Mean Corpuscular Volume 91.5 fL (81-99); Mean Platelet Vol. 8.9 fl (6.2-12.0); Monocyte# 0.99 X10^3/uL; Monocyte% 8.1 % (0-10); NRBC Flagged by Analyzer 0 % (0-5); Neutrophil # 9.08 X10^3/uL (2.7-7.7); Neutrophil % 74.2 % (47-70); Platelet Count 180 K/mm3 (150-450); RBC Distribution Width CV 13.2 % (11.6-14.6); Red Blood Count 3.41 M/mm3 (4.2-5.4); White Blood Count 12.2 K/mm3 (4.4-11.0)
[2020-12-26 15:53] LABS: Glucose Challenge Gest 1H 50g 98 mg/dL (70-140)
== END ==
PROVIDERS: Referring Provider Obstetrics & Gynecology; Visit Provider Obstetrics & Gynecology
DX: O99.331 Smoking (tobacco) complicating pregnancy, first trimester (principal); O09.90 Supervision of high risk pregnancy, unspecified, unspecified trimester; Z3A.00 Weeks of gestation of pregnancy not specified
CPT/HCPCS: 36415; 82950; 85025

== ENCOUNTER → 2020-12-30 | Outpatient (CLI) | payer MEDICARE, SELFPAY | END | disposition home or self-care (01) | LOC: LABSPEC 12-31 10:07 | PROVIDERS: Referring Provider Obstetrics & Gynecology; Visit Provider Obstetrics & Gynecology | DX: N89.8 Other specified noninflammatory disorders of vagina (principal) | CPT/HCPCS: 87070; 87205 ==

== ENCOUNTER → 2021-01-06 10:31 | Outpatient (CLI) | payer MEDICARE, SELFPAY ==
[2021-01-06 12:07] LABS: ALB/GLOB Ratio 0.7 RATIO (0.9-2.4); AST(SGOT) 12 U/L (15-37); Alanine Aminotransfer ALT/SGPT 11 U/L (13-56); Albumin, Serum 2.5 g/dL (3.2-5.0); Alkaline Phosphatase 104 U/L (45-117); Anion Gap 9 (5-15); BUN 8 mg/dL (7-18); BUN/Creat Ratio 18.3 RATIO (10-20); Calcium,Total 8.3 mg/dL (8.5-10.1); Chloride 104 mmol/L (98-107); Creatinine, Serum 0.44 mg/dL (0.55-1.02); EST Glomerular Filtration Rate 186 mL/min (>60); Est Glom Filt Rate - Afr Amer 225 mL/min (>60); Globulin 3.8 g/dL (2.2-4.2); Glucose 93 mg/dL (74-106); Potassium 3.4 mmol/L (3.5-5.1); Protein, Total 6.3 g/dL (6.4-8.2); Sodium Level 137 mmol/L (136-145)
== END ==
PROVIDERS: Referring Provider Obstetrics & Gynecology; Visit Provider Obstetrics & Gynecology
DX: L29.9 Pruritus, unspecified (principal); Z83.2 Family history of diseases of the blood and blood-forming organs and certain disorders involving the immune mechanism
CPT/HCPCS: 36415; 80053

== ENCOUNTER → 2021-02-21 18:05 | Outpatient (CLI) | payer MEDICARE, SELFPAY ==
[2021-02-21 11:40] LABS: ALB/GLOB Ratio 0.6 RATIO (0.9-2.4); AST(SGOT) 12 U/L (15-37); Alanine Aminotransfer ALT/SGPT 13 U/L (13-56); Albumin, Serum 2.7 g/dL (3.2-5.0); Alkaline Phosphatase 172 U/L (45-117); Anion Gap 7 (5-15); BUN 8 mg/dL (7-18); BUN/Creat Ratio 13.5 RATIO (10-20); Calcium,Total 8.6 mg/dL (8.5-10.1); Chloride 103 mmol/L (98-107); Creatinine, Serum 0.59 mg/dL (0.55-1.02); EST Glomerular Filtration Rate 132 mL/min (>60); Est Glom Filt Rate - Afr Amer 159 mL/min (>60); Globulin 4.3 g/dL (2.2-4.2); Glucose 94 mg/dL (74-106); Potassium 3.5 mmol/L (3.5-5.1); Sodium Level 134 mmol/L (136-145)
--- NOTE | 2021-02-21 18:08 | US_ITS ---
STUDY: SECOND AND THIRD TRIMESTER OBSTETRICAL ULTRASOUND - LIMITED REASON FOR EXAM: Female, 26 years old. Growth. LMP: 06/14/2020. PRIOR ULTRASOUND: None. TECHNIQUE: Transabdominal TECHNICAL QUALITY: Adequate. FINDINGS: There is a single intrauterine fetus. The fetus is in a cephalic presentation. There is demonstrated cardiac activity with a heart rate of 145 bpm. There is a normal amniotic fluid volume. The largest amniotic fluid pocket measures 5.85 cm. The amniotic fluid index (NEFTALY) is 13.03 cm. The placenta is anterior in location and is not low lying. There are Grade surgery placental changes. The cervix measures 3.37 cm in length. BIOMETRY: BPD: 8.47 cm: 34 weeks, 0 days HC: 32.28 cm: 36 weeks, 3 days AC: 31.67 cm: 35 weeks, 4 days FL: 6.51 cm: 33 weeks, 3 days Age by LMP: 37 weeks, 0 days. YAMILET by LMP: 03/21/2021. age by current US: 35 weeks, 3 days. YAMILET by current US: 03/25/2021. Estimated weight: 2542 grams, +/- 381 grams, 23 percentile. Gender: Indeterminant US/OB Limited With Biometrics IMPRESSION: 1. Live mcdowell intrauterine at 35 weeks, 3 days. YAMILET is 03/25/2021. There is adequate interval growth compared to expected growth relative to LMP. 2. EFW of 2542 g. 3. NEFTALY 13.03 cm. 4. Anterior grade 3 placenta. 5. Vertex presentation. Electronically Signed: Juan Miguel Garcia DO at 20:08 EDT Tel [phone], Service support ,
== END ==
PROVIDERS: Referring Provider Obstetrics & Gynecology; Visit Provider Obstetrics & Gynecology
DX: O09.90 Supervision of high risk pregnancy, unspecified, unspecified trimester (principal); O99.719 Diseases of the skin and subcutaneous tissue complicating pregnancy, unspecified trimester; L29.9 Pruritus, unspecified; Z3A.00 Weeks of gestation of pregnancy not specified
CPT/HCPCS: 36415; 76816; 80053; 87081

== ENCOUNTER 2021-02-23 13:15 | Outpatient (CLI) | payer MEDICARE, SELFPAY ==
[2021-02-23 13:27] VITALS: BMI 26.8
[2021-02-23 13:34] VITALS: BP 124/64; PULSE 102; TEMP 36.6
[2021-02-23 14:31] LABS: Absolute Lymphocyte Count 1.95 X10^3/uL (0.83-4.51); Absolute Neutrophil Count 9.1 X10^3/uL (2.0-7.7); Basophil# 0.05 X10^3/uL; Basophil% 0.4 % (0-1); Eosinophil# 0.08 X10^3/uL; Eosinophils% 0.7 % (0-5); Hematocrit 32.5 % (37-47); Hemoglobin 11.2 g/dL (12.0-15.0); Lymphocyte # 1.95 X10^3/ul (0.83-4.51); Lymphocyte % 16.1 % (19-41); Mean Corp Hgb Conc 34.5 g/dL (32-36); Mean Corpuscular Hgb 30.4 pg (27.0-32.0); Mean Corpuscular Volume 88.3 fL (81-99); Mean Platelet Vol. 9.8 fl (6.2-12.0); Monocyte# 0.92 X10^3/uL; Monocyte% 7.6 % (0-10); NRBC Flagged by Analyzer 0 % (0-5); Neutrophil # 9.09 X10^3/uL (2.7-7.7); Neutrophil % 74.9 % (47-70); Platelet Count 194 K/mm3 (150-450); RBC Distribution Width CV 13.1 % (11.6-14.6); RBC Distribution Width SD 42.5 fl (35.1-43.9); Red Blood Count 3.68 M/mm3 (4.2-5.4); White Blood Count 12.1 K/mm3 (4.4-11.0)
[2021-02-23 14:42] LABS: ALB/GLOB Ratio 0.6 RATIO (0.9-2.4); AST(SGOT) 11 U/L (15-37); Alanine Aminotransfer ALT/SGPT 12 U/L (13-56); Albumin, Serum 2.5 g/dL (3.2-5.0); Alkaline Phosphatase 159 U/L (45-117); Anion Gap 6 (5-15); BUN 9 mg/dL (7-18); BUN/Creat Ratio 16.4 RATIO (10-20); Calcium,Total 8.6 mg/dL (8.5-10.1); Chloride 108 mmol/L (98-107); Creatinine, Serum 0.55 mg/dL (0.55-1.02); EST Glomerular Filtration Rate 144 mL/min (>60); Est Glom Filt Rate - Afr Amer 174 mL/min (>60); Estimated Creatinine Clearance 133.79 ml/min; Glucose 116 mg/dL (74-106); Potassium 3.4 mmol/L (3.5-5.1); Protein, Total 6.5 g/dL (6.4-8.2); Sodium Level 137 mmol/L (136-145)
[2021-02-23] MEDS: Ursodiol 250 MG Tablet PO (15:06)
--- NOTE | 2021-02-24 08:20 | OB.TRI.PN_ITS ---
Progress Notes Date of Service: 02/23/21 Progress Note: Patient presents for triage evaluation secondary to RUQ and itching FHT: 140 Moderate variability reactive no decelerations category I tracing [place]: irregular Contractions Assessment and plan: ruq pain itching, ruling out cholestasis bile acids pending Reactive NST, reassuring maternal and status patient discharged to home to follow-up as schedule. See problem list details for additional plan information. Laboratory Studies: Laboratory Tests 02/23/21 02/23/21 Range/Units 14:10 14:10 WBC 12.1 H (4.4-11.0) K/mm3 RBC 3.68 L (4.2-5.4) M/mm3 Hgb 11.2 L (12.0-15.0) g/dL Hct 32.5 L (37-47) % MCV 88.3 (81-99) fL MCH 30.4 (27.0-32.0) pg MCHC 34.5 (32-36) g/dL RDW Std Deviation 42.5 (35.1-43.9) fl RDW Coeff of Jua[place] 13.1 (11.6-14.6) % Plt Count 194 (150-450) K/mm3 MPV 9.8 (6.2-12.0) fl Immature Gran % (Auto) 0.300 (0.0-0.9) % Neut % (Auto) 74.9 H (47-70) % Lymph % (Auto) 16.1 L (19-41) % [place] % (Auto) 7.6 (0-10) % Eos % (Auto) 0.7 (0-5) % Baso % (Auto) 0.4 (0-1) % Absolute Neuts (auto) 9.1 H (2.0-7.7) X10^3/uL Absolute Lymphs (auto) 1.95 (0.83-4.51) X10^3/uL Nucleated RBC % 0 (0-5) % Sodium 137 (136-145) mmol/L Potassium 3.4 L (3.5-5.1) mmol/L Chloride 108 H (98-107) mmol/L Carbon Dioxide 23.0 (21.0-32.0) mmol/L Anion Gap 6 (5-15) BUN 9 (7-18) mg/dL Creatinine 0.55 (0.55-1.02) mg/dL Estim Creat Clear Calc 133.79 ml/min Est GFR (MDRD) Af Amer 174 (>60) mL/min Est GFR (MDRD) Non-Af 144 (>60) mL/min BUN/Creatinine Ratio 16.4 (10-20) RATIO Glucose 116 H (74-106) mg/dL Calcium 8.6 (8.5-10.1) mg/dL Total Bilirubin 0.60 (0.20-1.00) mg/dL AST 11 L (15-37) U/L ALT 12 L (13-56) U/L Alkaline Phosphatase 159 H (45-117) U/L Total Protein 6.5 (6.4-8.2) g/dL Albumin 2.5 L (3.2-5.0) g/dL Globulin 4.0 (2.2-4.2) g/dL Albumin/Globulin Ratio 0.6 L (0.9-2.4) RATIO Charges/Coding Procedures Urinary/Genital [id number]: [id number] non-stress test Interp
== END 2021-02-23 15:10 | disposition home or self-care (01) ==
LOC: WPOUT 13:24 → WP 13:25
PROVIDERS: Visit Provider Obstetrics & Gynecology
DX: O26.899 Other specified pregnancy related conditions, unspecified trimester (principal); L29.9 Pruritus, unspecified; Z3A.00 Weeks of gestation of pregnancy not specified
CPT/HCPCS: 36415; 59025; 59050; 80053; 85025; 99218; G0378

== ENCOUNTER → 2021-02-25 14:49 | Outpatient (CLI) | payer MEDICARE, SELFPAY ==
--- NOTE | 2021-02-25 14:54 | US_ITS ---
STUDY: OBSTETRICAL ULTRASOUND - BIOPHYSICAL PROFILE REASON FOR EXAM: Female, 26 years old pruritus LMP: 06/14/2020. PRIOR ULTRASOUND: Comparison is made with prior study 02/21/2021. TECHNIQUE: Transabdominal TECHNICAL QUALITY: Adequate. FINDINGS: There is a single intrauterine fetus. The fetus is in a cephalic presentation. There is demonstrated cardiac activity with a heart rate of 153 bpm. There is a normal amniotic fluid volume. The largest amniotic fluid pocket measures 6.5 cm. The amniotic fluid index (NEFTALY) is 14.2 cm. The placenta is There are Grade 3 placental changes. Age by LMP: 36 weeks, 4 days. YAMILET by LMP: 03/21/2021. BIOPHYSICAL PROFILE: Breathing Movements (FBM): 2 Gross Body Movements (GBM): 2 Tone (FT): 2 Amniotic Fluid Volume (AFV): 2 TOTAL SCORE: 8 / 8 US/Biophysical Prof W/O Non Stres IMPRESSION: Normal biophysical profile of 8/8. Electronically Signed: Jericho Ann MD at 15:41 EST , Service support ,
== END ==
LOC: US 14:50
PROVIDERS: Visit Provider Obstetrics & Gynecology
DX: O99.719 Diseases of the skin and subcutaneous tissue complicating pregnancy, unspecified trimester (principal); L29.9 Pruritus, unspecified; Z3A.00 Weeks of gestation of pregnancy not specified
CPT/HCPCS: 76819

== ENCOUNTER 2021-03-04 16:05 | Outpatient (CLI) | payer MEDICARE, SELFPAY ==
[2021-03-04 16:19] VITALS: BP 128/79; PULSE 113; TEMP 37.3
[2021-03-04 16:45] VITALS: BMI 26.9
--- NOTE | 2021-03-04 17:40 | OB.TRI.PN_ITS ---
Progress Notes Date of Service: 03/04/21 Progress Note: Patient presents for triage evaluation secondary to ctx FHT: 130 Moderate variability reactive no decelerations category I tracing [place]: irregular Contractions Assessment and plan: falase labor Reactive NST, reassuring maternal and status patient discharged to home to follow-up as scheudled. See problem list details for additional plan information. Charges/Coding Procedures Urinary/Genital [id number]: 65808-05 non-stress test Interp
== END 2021-03-04 17:46 | disposition home or self-care (01) ==
LOC: WPOUT 16:10 → WP 16:10
PROVIDERS: Visit Provider Obstetrics & Gynecology
DX: O47.9 False labor, unspecified (principal); Z3A.00 Weeks of gestation of pregnancy not specified
CPT/HCPCS: 59025; 59050; 99218; G0378

== ENCOUNTER 2021-03-14 09:25 | Inpatient (IN) | payer MEDICARE, SELFPAY ==
[2021-03-14] VITALS (14 sets, daily range): BP systolic 92–122; BP diastolic 40–82; PULSE 66–120; RESP 12–20; TEMP 36.1–36.6; O2SAT 94–99; BMI 27.3
--- NOTE | 2021-03-14 09:02 | HP.PCM.OB_ITS ---
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 History of frequent headaches History of hemorrhoids History of mitral valve prolapse Marijuana abuse PTSD (post-traumatic stress disorder) Rheumatoid arthritis Seizure disorder Home Medications aspirin 81 mg tablet,delayed release 81 mg PO DAILY 08/06/20 [History Last Taken 03/04/21 10:00] multivitamin no.47-iron fum 27 mg-folate no.1 1 mg-dha 300 mg capsule 1 cap PO DAILY 08/06/20 [History Last Taken 03/04/21 10:00] hydroxyzine pamoate 25 mg capsule 25 mg PO QHS PRN 30 Days #30 cap 02/21/21 [Rx Last Taken 03/02/21 2200] ursodiol 300 mg capsule 300 mg PO BID #14 cap 02/24/21 [Rx Last Taken 03/02/21 300] Allergy/AdvReac Type Severity Reaction Status Date / Time ibuprofen Allergy Intermediate Other Verified 03/07/21 10:35 adalimumab [From Humira] Allergy Unknown Verified 03/07/21 10:35 amoxicillin [Amoxicillin] Allergy Unknown Verified 03/07/21 10:35 benzalkonium [Benzalkonium] Allergy Unknown Verified 03/07/21 10:35 corn [[place]] Allergy Unknown Verified 03/07/21 10:35 kiwi Allergy Unknown Verified 03/07/21 10:35 latex Allergy Unknown Verified 03/07/21 10:35 procaine HCl [From Novocain] Allergy Unknown Verified 03/07/21 10:35 Sulfa (Sulfonamide Allergy Hives Verified 03/07/21 10:35 Antibiotics) venom-honey bee Allergy Swelling Verified 03/07/21 10:35 [bee venom (honey bee)] Family History Mother , age 46 Diabetes Heart disease Surgical History History of appendectomy history of eardrum reconstruction S/P dilation and curettage S/P excision of ganglion cyst S/P tonsillectomy and adenoidectomy S/P unilateral salpingo-oophorectomy Status post mastoidectomy Status post skin graft Social History household members: family number of children: 1 current occupational status: unemployed Smoking Status: Former smoker second hand exposure: Yes alcohol intake: former substance use type: former substance user, marijuana and heroin caffeine: Yes what type of physical activity do you participate in: walking frequency: daily seatbelt use: always do you feel safe at home: Yes 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 Date Name GA/Weeks Outcome Route Bth Weight Gen Labor Lgth Anes t hesia Del Locatn Provider FOB Unknown 04/2014 spontaneous [place], [place] Unknown 01/2015 spontaneous [place], [place] Unknown 06/2017 spontaneous [facility] 07/30/18 Miguel 39 live - full term vacuum 5lbs 12oz Femal e 20 hours epidural [facility] Dr. Peterson Kirkpatrick Delivery Date: No notes to display Delivery Date: No notes to display Delivery Date: No notes to display Delivery Date: 07/30/18 Was on progesterone and aspirin from time of conception. IoL d/t GHTN; also had PP HTN. Maternal fever-acute chorioamnionitis and acute deciduitis. Left sidewall hematoma- patient continued to have mild decrease in HGB and tachycardia and was transfuse two units of PRBC. Rhoda Durán Visit Details Expected Delivery Route/Plan patient requesting primary due to pelvic hematoma after delivery Labor Preferences- CB/BF classes: no labor support person: Casimiro labor intervention preferences: [] pain management options preferred: spinal cut cord/dad catch: yes : yes PP control planned: discussed discussed possible routes of delivery and associated risks: [] special requests: does NOT want IV pain meds Plans covid status: non immune, counseled regarding risk of covid in vs vaccination and declined vaccination flu vaccine: declined tdap vaccine: declined rhogam:na LARC form signed: yes movement and labor precautions reviewed. Problem list reviewed and updated with the most current plan of care details and appropriate orders placed. Relevant counseling for the gestational age provided. Continue routine care and follow up unless otherwise noted in visit notes/problem list details OB Flowsheet Initial Weight: Not Recorded Date -?-?-?-?-?-?-?-?-?-?-?-?- EGA Weight BP Urine Prot -?-?-?-?--?-?-?-?-?-?-?-?- Glucose FHR FuHt Pres Dilation -?-?-?-?-?-?-?-?-?-?--?-?- Effaced St Visit Note 08/12/20 -?-?-?-?-?-?-?-?-?-?-?-?- 8w 3d 99 lb 122/60 -?-?-?-?-?-?-?-?-?-?-?-?- 170 -?-?-?-?-?-?-?-?-?-?-?-?- GP - CRL 15mm co nsistent with LMP. 08/29/20 -?-?-?-?-?-?-?-?-?-?-?-?- 10w 6d 98 lb 6 oz 114/68 Negat patrick -?-?-?-?-?-?-?-?-?-?-?-?- Negative 170 -?-?-?-?-?-?-?-?-?-?-?-?- GP - no cramping or bleeding. Decided on NIPT. Will see back in 2 weeks given hx RPL. 09/12/20 -?-?-?-?-?-?-?-?-?-?-?-?- 12w 6d 98 lb 98/58 Negative -?-?-?-?-?-?-?-?-?-?-?-?- Negative 155 -?-?-?-?-?-?-?-?-?-?-?-?- GP - no cramping or bleeding. Anatomy ordered. It's a boy! Considering PPBTL - handout given 10/10/20 -?-?-?-?-?-?-?-?-?-?-?-?- 16w 6d 103 lb 4 oz 114/58 Nega tive -?-?-?-?-?-?-?-?-?-?-?-?- Negative 150 0 -?-?-?-?-?-?-?-?-?-?-?-?- GP - Having inte rmittent tightening - thinks may be due to movement. Cervix closed. Culture collected. 10/31/20 -?-?-?-?-?-?-?-?-?-?-?-?- 19w 6d 105 lb 108/62 Negative -?-?-?-?-?-?-?-?-?-?-?-?- Negative 145 -?-?-?-?-?-?-?-?-?-?-?-?- GP - no LOF, VB, DFM, ctx. Had anatomy scan today. 11/27/20 -?-?-?-?-?-?-?-?-?-?-?-?- 23w 5d 111 lb 2 oz 114/58 Nega tive -?-?-?-?-?-?-?-?-?-?-?-?- Negative 145 24 -?-?-?-?-?-?-?-?-?-?-?-?- GP - no LOF, VB, dFM, ctx. Discussed echogenic focus - NIPT nl. Discussed echo for hx seizure dx 12/26/20 -?-?-?-?-?-?-?-?-?-?-?-?- 27w 6d 115 lb 114/71 -?-?-?-?-?-?-?-?-?-?-?-?- 149 28 -?-?-?-?-?-?-?-?-?-?-?-?- MH- No Vb, LOF. Good FM. 28 wk labs: add FE due to anemia. Glucose WNL. Considering tdapand flu vaccine next visit. 12/30/20 -?-?-?-?-?-?-?-?-?-?-?-?- 28w 3d 115 lb 110/60 Negative -?-?-?-?-?-?-?-?-?-?-?-?- Negative 140 28 0 -?-?-?-?-?-?-?-?-?-?-?-?- GP - no LOF, VB, dFM. Having intermittent contractions - max 3-4 per hour. Cervix closed increased discharge on exam - culture sent. Continues to have whole body itching - CMP and bile acids ordered. 01/06/21 -?-?-?-?-?-?-?-?-?-?-?-?- 29w 3d 114 lb 8 oz 114/68 -?-?-?-?-?-?-?-?-?-?-?-?- 140 -?-?-?-?-?-?-?-?-?-?-?-?- SM- signed title 19, no vb lof good fm no regular ctx 01/22/21 -?-?-?-?-?-?-?-?-?-?-?-?- 31w 5d 119 lb 4 oz 110/60 Nega tive -?-?-?-?-?-?-?-?-?-?-?-?- Negative 135 31 -?-?-?-?-?-?-?-?-?-?-?-?- GP - no LOF, VB, dFM, ctx. Discussed PTL precautions. 02/07/21 -?-?-?-?-?-?-?-?-?-?-?-?- 34w 0d 118 lb 2 oz 120/60 Nega tive -?-?-?-?-?-?-?-?-?-?-?-?- Negative 130 34 -?-?-?-?-?-?-?-?-?-?-?-?- SM- no vb lof go od fm no regular ctx discussed vs primary cs patient requesting cs due to previous hematoma 02/21/21 -?-?--?-?-?-?-?-?-?-?-?-?- 36w 0d 120 lb 100/80 -?-?-?-?-?-?-?-?-?-?-?-?- 140 36 -?-?-?-?-?-?-?-?-?-?-?-?- JV- pt still itc valentin .will order bile acids. growth scan today. vistaril ordered 02/28/21 -?-?-?-?-?-?-?-?-?-?-?-?- 37w 0d 120 lb 8 oz 120/80 Nega tive -?-?-?-?-?-?-?-?-?-?-?-?- Negative 138 34 Cephalic -?-?-?-?-?-?-?-?-?-?-?-?- JV- no lof vagin al bleeding, or dec fm. 03/07/21 -?-?-?-?-?-?-?-?-?-?-?-?- 38w 0d 122 lb 4 oz 112/64 Nega tive -?-?-?-?-?-?-?-?-?-?-?-?- Negative 142 37 Cephalic 1 -?-?-?-?-?-?-?-?-?-?-?-?- 70 -4 JV- pt sti ll having on and off mild contractions. she is scheduled for primary section next wednesday afternoon. 03/14/21 -?-?-?-?-?-?-?-?-?-?-?-?- 39w 0d -?-?-?-?-?-?-?-?-?-?-?-?- -?-?-?-?-?-?-?-?-?-?-?-?- NST FHR Rate Baby A Baseline: 130 ROS Constitutional Constitutional: Reports systems reviewed and no addt'l complaints, except as documented Eyes Eyes: Denies change in vision ENT HEENT: Reports systems reviewed and no addt'l complaints, except as documented; Denies headache(s) Cardiovascular Cardiovascular: Reports systems reviewed and no addt'l complaints, except as documented; Denies chest pain or dyspnea Respiratory/Chest Respiratory/Chest: Reports systems reviewed and no addt'l complaints, except as documented Gastrointestinal Gastrointestinal: Reports systems reviewed and no addt'l complaints, except as documented; Denies abdominal pain Genitourinary Genitourinary: Reports systems reviewed and no addt'l complaints, except as documented, contractions Details: present (irregular) and movement Details: present; Denies dysuria or genital lesions Musculoskeletal Musculoskeletal: Reports systems reviewed and no addt'l complaints, except as documented Neurologic Neurologic: Reports systems reviewed and no addt'l complaints, except as documented Endocrine Endocrinology: Reports systems reviewed and no addt'l complaints, except as documented Physical Exam Const alert, oriented x3, no apparent distress and healthy appearing HEENT normocephalic and moist oral mucous membranes Head and Scalp: atraumatic Neck full ROM, no lymphadenopathy, supple and thyroid normal General: trachea midline Lymph Lymphatic: no lymphadenopathy noted Chest inspection of chest normal Resp normal respiratory effort Cardio regular rate GI normal to inspection, nondistended, normoactive bowel sounds, soft to palpation and non-tender Inspection: gravid external exam normal Manual OB Exam: estimated gestational size appropriate, presentation cephalic, dilated, effaced and station Extremity normal to inspection General Extremity: Negative for edema Skin no rashes or lesions noted Neuro no focal motor deficits and deep tendon reflexes 2+ bilaterally Motor Exam: strength 5/5 throughout and clonus absent Psych mental status grossly normal Labs Labs Labs: Blood Type A POSITIVE Antibody Screen NEGATIVE Hct 32.5 % (37-47) L Hgb 11.2 g/dL (12.0-15.0) L Obstetrics US Syphilis Total Ab Non-reactive VZV IgG Antibody 2435 index (Immune >165) Rubella IgG Antibody Reactive (Nonreactive) Hep Bs Antigen Non-Reactive (Nonreactive) Neisseria gonorrhoeae DNA (ALFREDO) Negative (Negative) HIV 1&2 Antibody Non-Reactive (Nonreactive) C.trachomatis DNA (PCR) Negative (Negative) Glucose 1 Hr 50 gm 98 mg/dL (70-140) Rhogam given: No Miscellaneous Test Assessment & Plan (1) History of pelvic hematoma: COMMENT: plan LTCS for delivery this (2) pruritus: COMMENT: CMP and bile acids ordered (3) Family history of blood disorder: COMMENT: ordered thrombophilia labs (4) Anemia affecting , antepartum: COMMENT: add FE (5) : QUALIFIERS: Weeks of gestation: 37 weeks Qualified Code(s): Z3A.37 - 37 weeks gestation of COMMENT: desires genetic and carrier discussed AFP, NIPT low risk; GBS neg (6) Supervision of high risk , antepartum: COMMENT: PRR YAMILET: 03/23/21, boy PC: Miguel Spouse: Casimiro (7) Tobacco smoking affecting : QUALIFIERS: Trimester: first trimester Qualified Code(s): O99.331 - Smoking (tobacco) complicating , first trimester COMMENT: 6 ppd, smoked since age 15, encouraged cessation (8) cardiac echogenic focus: COMMENT: nl echo 12/16/20 (9) Rheumatoid arthritis: (10) 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 Plan echo (12) History of hemorrhage, currently : (13) Depression affecting : (14) H/O maternal blood transfusion, currently : COMMENT: vaginal hematoma- received 2 units of PRBCs. Given significant trauma with 5lb baby last , plan growth at 36w. planning for primary section with Dr. Diego on 03/14/2021 at noon. (15) History of chorioamnionitis: COMMENT: maternal fever;
[2021-03-14] MEDS: Lactated Ringers 1,000 ML 999 ML IV (10:40)
[2021-03-14] MEDS: Acetaminophen 500 MG Tablet 1000 MG PO ×3 (11:05→23:13)
[2021-03-14 11:12] LABS: Absolute Lymphocyte Count 1.77 X10^3/uL (0.83-4.51); Absolute Neutrophil Count 9.2 X10^3/uL (2.0-7.7); Basophil# 0.05 X10^3/uL; Basophil% 0.4 % (0-1); Eosinophil# 0.09 X10^3/uL; Eosinophils% 0.7 % (0-5); Hematocrit 32.8 % (37-47); Hemoglobin 11.5 g/dL (12.0-15.0); Lymphocyte # 1.77 X10^3/ul (0.83-4.51); Lymphocyte % 14.4 % (19-41); Mean Corp Hgb Conc 35.1 g/dL (32-36); Mean Corpuscular Hgb 30.5 pg (27.0-32.0); Mean Platelet Vol. 9.6 fl (6.2-12.0); Monocyte# 1.17 X10^3/uL; Monocyte% 9.5 % (0-10); NRBC Flagged by Analyzer 0 % (0-5); Neutrophil # 9.17 X10^3/uL (2.7-7.7); Neutrophil % 74.4 % (47-70); Platelet Count 208 K/mm3 (150-450); RBC Distribution Width CV 13.3 % (11.6-14.6); RBC Distribution Width SD 42.3 fl (35.1-43.9); Red Blood Count 3.77 M/mm3 (4.2-5.4); White Blood Count 12.3 K/mm3 (4.4-11.0)
[2021-03-14] MEDS: Lactated Ringers 1,000 ML 150 ML IV (11:32)
[2021-03-14] MEDS: Sodium Citrate/Citric Acid 30 ML UDC PO (12:06)
--- NOTE | 2021-03-14 12:15 | EX.PCM.OBRPT ---
Assessment & Plan (1) History of hemorrhage, currently : (2) Depression affecting : (3) H/O maternal blood transfusion, currently : COMMENT: vaginal hematoma- received 2 units of PRBCs. Given significant trauma with 5lb baby last , plan growth at 36w. planning for primary section with Dr. Diego on 03/14/2021 at noon. (4) History of chorioamnionitis: COMMENT: maternal fever; (5) : QUALIFIERS: Weeks of gestation: 37 weeks Qualified Code(s): Z3A.37 - 37 weeks gestation of COMMENT: desires genetic and carrier discussed AFP, NIPT low risk; GBS neg (6) Supervision of high risk , antepartum: COMMENT: PRR YAMILET: 03/23/21, boy PC: Miguel Spouse: Casimiro (7) Tobacco smoking affecting : QUALIFIERS: Trimester: first trimester Qualified Code(s): O99.331 - Smoking (tobacco) complicating , first trimester COMMENT: 6 ppd, smoked since age 15, encouraged cessation (8) Anemia affecting , antepartum: COMMENT: add FE (9) pruritus: COMMENT: CMP and bile acids ordered (10) History of mitral valve prolapse: COMMENT: Previously cleared by cardiology, very mild (11) Rheumatoid arthritis: (12) 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 Plan echo (14) cardiac echogenic focus: COMMENT: nl echo 12/16/20 (15) Family history of blood disorder: COMMENT: ordered thrombophilia labs (16) : QUALIFIERS: Weeks of gestation: 38 weeks Qualified Code(s): Z3A.38 - 38 weeks gestation of (17) History of pelvic hematoma: COMMENT: plan LTCS for delivery this Maternal Data Information YAMILET Calculator Estimated Delivery Date Method Current WG Current Estimate 03/21/21 LMP (Certain) 39w 0d Final YAMILET Source: LMP Details Operative Information Date of Procedure: 03/14/21 Pre-Operative Diagnosis: previous pelvic hematoma with vaginal delivery Post-Operative Diagnosis: same Indications for : Desires elective sterilization Classification: Scheduled Procedure Type: low transverse (and bilateral salpignectomy) Type of Anesthesia: Spinal Special Medications: none Antibiotic Given: Ancef 2 grams IV x1 Drain: Dean to straight drain Estimated Blood Loss: 300 Fluids Replaced: crystalloid Findings Description of Procedure: Spinal anesthesia was placed without difficulty. Dean catheter was placed. The patient was placed in the dorsal supine position with leftward tilt. Patient was prepped and draped in the normal sterile fashion. Pfannenstiel skin incision was made with the scalpel and carried through to the underlying layer of fascia with the scalpel. Fascia was nicked in the midline and the incision extended laterally. The rectus bellies were dissected off superiorly and inferiorly with out complication both sharply and bluntly. The peritoneum was entered digitally. The incision was stretched and a low transverse uterine incision was made with the scalpel. The 's head was delivered atraumatically followed by the anterior and posterior shoulders without complication the rest of the infant delivered. The cord was clamped and cut and the was handed off to awaiting nurse. The placenta was delivered spontaneously immediately following and was noted to be intact and have a three-vessel cord. The uterus was exteriorized cleared of all clots and debris, and the incision was closed in a single layer closure using #1 Monocryl. The ovaries and fallopian tubes were noted to be within normal limits. Patient had desired sterilization and was counseled preoperatively regarding irreversibility and permanency. Therefore bilateral fallopian tubes were elevated and transected across using a LigaSure device starting proximally to distally without complication the entire fallopian tubes were removed. The uterus was returned to the maternal abdomen and gutters were cleared of all clots and debris. The peritoneum was closed with 3-0 Monocryl in a running fashion. Gloves were changed prior to fascial closure. Fascia was closed with 0 PDS in a running fashion. Subcutaneous tissue was copiously irrigated and the skin was closed with 3-0 Monocryl in a subcuticular fashion. Mepilex dressing was applied without complication. Patient was taken to recovery in stable condition. Amniotic Membrane Rupture Type: Artificial Amniotic Fluid Description: Clear Placenta Disposition: [facility] Cord Vessel Description: 3 Vessels Cord Entanglement: None Delayed Cord Clamping: Yes Complications Risks of Surgery Discussed w/Patient: Bleeding, Infection, Need for Future C-Sections and Injury to surrounding structure(s) including bowel and bladder Vaginal Delivery Complication Complications: None Admit VTE Documentation VTE Present on Admission: No VTE Mechan Device Prophylaxis: SCD's Multi Select Codes Urinary/Genital Urinary/Genital CPT Codes: 71880 C/S+TL (salpingectomy bilateral) and 51208 Delivery [facility]
--- NOTE | 2021-03-14 12:28 | PCM.DC ---
Discharge Instructions Diet Discharge Diet: No restrictions Activity Discharge Activity: May Not Drive (for 2 weeks or while taking narcotic pain medications.), May Shower and May Take a Tub Bath (in 7 days) May shower in (days): 0 May resume sexual activity in: 4-6 weeks Weight Bearing Status: Full weight bearing Lifting Restrictions: 20 pounds Dressing / Incision Call your doctor if your incision/area has: Continuous Slow Oozing, Sudden Increased Bleeding, Increased Pain/ Swelling, Increased Redness and Foul Smelling Discharge Call your doctor if you observe: Fever of 101 or Higher and Using more than 1 pad per hour (for 2 hours) Suture Line Care: Avoid Pulling/Pushing and Avoid Pinching/Bending Cleanse incision/area with: Soap & Water and Keep Dressing Clean & Dry Follow Up Care Please Follow Up With: Latrice Diego MD When: Call [phone] to make an appointment for an incision check in 1-2 weeks. Test Results: Test results from this visit will be discussed in further detail at your follow-up appointment, if applicable. Discharge Plan Admission Admit Date/Time: 03/14/21 09:25 Primary Reason for Your Visit: Attending Provider: Latrice Diego Primary Care Provider: Care Physician,No Primary Discharge Orders/Prescriptions Prescriptions: New oxycodone-acetaminophen [Percocet] 5-325 mg tablet 1 tab PO Q6H PRN (Reason: pain) 7 Days Qty: 20 RF: 0 Continued aspirin 81 mg tablet,delayed release (DR/EC) 81 mg PO DAILY RF: 0 PNV-DHA 27 mg iron-1 mg -300 mg capsule 1 cap PO DAILY RF: 0 hydroxyzine pamoate [Vistaril] 25 mg capsule 25 mg PO QHS PRN (Reason: itching) 30 Days Qty: 30 RF: 0 ursodiol 300 mg capsule 300 mg PO BID RF: 0 Referrals / Follow Up: Care Physician,No Primary [Primary Care Provider] -
[2021-03-14] MEDS: Oxytocin 30 units/NS 500 ml 30 UNITS/500 ML IV.SOLN 167 UNITS IV (13:15)
--- NOTE | 2021-03-14 13:27 | FALL_PTH ---
PATIENT: YONNY COOL LOC: WP U#:[id number] AGE/SX: 26/F ROOM: WP009 RE03/14/[address]: Dr. Latrice Diego MD : 1995 BED: 1 DIS: 03/16/2021 SPEC #: [id number] RECD: 03/14/21 13:47 STATUS: JOHN REAnaya #: [id number] SHYLA: 03/14/21 13:[address]: Latrice Diego DEPT: SURGICAL PATHOLOGY RECD BY: Minoo Kidd ENTERED: 03/14/21 13:47 SP TYPE: FALL TUBES OTHR DR: No Primary Care Phys Tissues: Fallopian tube Procedures: Surgery Specimen Level II HEADER OPERATION: Primary section PRE-OP DIAGNOSIS: Primary section TISSUE SUBMITTED: Left fallopian tube MICROSCOPIC DIAGNOSIS Left fallopian tube, salpingectomy: Fallopian tube, no pathologic diagnosis. SJ 03/17/21 MICROSCOPIC DESCRIPTION Slides are reviewed. GROSS DESCRIPTION Received in fixative is one container labeled with the patient's name and designated left fallopian tube. The specimen consists of a fallopian tube including fimbrial end measuring 6.0 cm in length and 0.6 cm in diameter. Sections reveal unremarkable cut surfaces. 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 / SJ:cc 03/14/21 TC:4 CPT: 73883
[2021-03-14] MEDS: Ketorolac 30 MG/ML Syringe IV ×2 (14:33→20:07)
[2021-03-14] MEDS: Lactated Ringers 1,000 ML 100 ML IV (16:23)
[2021-03-14] MEDS: 0.9% Saline Lock 10 ML Syringe IV (20:08)
[2021-03-15 00:05] VITALS: BP 102/53; PULSE 61; RESP 18; TEMP 36.5; O2SAT 97
[2021-03-15] MEDS: Ketorolac 30 MG/ML Syringe IV ×4 (02:14→20:44)
[2021-03-15] MEDS: 0.9% Saline Lock 10 ML Syringe IV ×4 (02:14→20:45)
[2021-03-15 04:34] VITALS: BP 99/44; PULSE 63; RESP 16; TEMP 36.4; O2SAT 96
[2021-03-15] MEDS: Acetaminophen 500 MG Tablet 1000 MG PO ×4 (05:17→23:46)
[2021-03-15 05:42] LABS: Hematocrit 28.7 % (37-47); Mean Corp Hgb Conc 34.8 g/dL (32-36); Mean Corpuscular Hgb 30.6 pg (27.0-32.0); Mean Corpuscular Volume 87.8 fL (81-99); Mean Platelet Vol. 9.5 fl (6.2-12.0); Platelet Count 177 K/mm3 (150-450); RBC Distribution Width CV 13.2 % (11.6-14.6); RBC Distribution Width SD 42.4 fl (35.1-43.9); Red Blood Count 3.27 M/mm3 (4.2-5.4); White Blood Count 18.9 K/mm3 (4.4-11.0)
[2021-03-15 08:20] VITALS: BP 107/55; PULSE 73; RESP 15; TEMP 36.6
[2021-03-15] MEDS: Senna/Docusate Sodium 1 Tablet PO (08:55)
--- NOTE | 2021-03-15 09:38 | PCM.PN.OB ---
Subjective Subjective Patient doing well without complaints. Tolerating PO. Ambulating and voiding without difficulty. feeding well. Denies chest pain, shortness of breath, calf pain/swelling, fevers, chills, lightheadedness. Objective Data Objective Data Vital Signs: Vital Signs Temp Pulse Resp BP Pulse Ox 97.8 F 73 15 107/55 L 96 03/15/21 08:20 03/15/21 08:20 03/15/21 08:20 03/15/21 08:20 03/15/21 04:34 Oxygen Delivery Method Room Air Weight: 121 lb 11.123 oz Body Mass Index (BMI) 27.3 Intake & Output: Intake and Output for Last 24 Hours 03/13/21 03/14/21 03/15/21 23:59 23:59 23:59 Intake Total 3116.38 / 3116.38 Output Total 800 / 800 500 / 500 Balance 2316.38 / 2316.38 -500 / -500 Lab / Micro Data Result Diagrams: 03/15/21 05:30 Labs: Laboratory Results - last 24 hr 03/14/21 10:40: WBC 12.3 H, RBC 3.77 L, Hgb 11.5 L, Hct 32.8 L, MCV 87.0, MCH 30.5, MCHC 35.1, RDW Std Deviation 42.3, RDW Coeff of [place] 13.3, Plt Count 208, MPV 9.6, Immature Gran % (Auto) 0.600, Neut % (Auto) 74.4 H, Lymph % (Auto) 14.4 L, [place] % (Auto) 9.5, Eos % (Auto) 0.7, Baso % (Auto) 0.4, Absolute Neuts (auto) 9.2 H, Absolute Lymphs (auto) 1.77, Nucleated RBC % 0 03/14/21 10:40: Blood Type A POSITIVE, Antibody Screen NEGATIVE 03/15/21 05:30: WBC 18.9 H, RBC 3.27 L, Hgb 10.0 L, Hct 28.7 L, MCV 87.8, MCH 30.6, MCHC 34.8, RDW Std Deviation 42.4, RDW Coeff of [place] 13.2, Plt Count 177, MPV 9.5 Micro: Microbiology 03/14/21 10:21 Nasal Secretion SARS-CoV-2 Antigen (Rapid) - Final ROS Constitutional Constitutional: Reports systems reviewed and no addt'l complaints, except as documented Cardiovascular Cardiovascular: Reports systems reviewed and no addt'l complaints, except as documented Respiratory/Chest Respiratory/Chest: Reports systems reviewed and no addt'l complaints, except as documented Gastrointestinal Gastrointestinal: Reports systems reviewed and no addt'l complaints, except as documented Physical Exam Const alert, oriented x3 and no apparent distress HEENT Head and Scalp: atraumatic Resp normal respiratory effort GI soft to palpation and non-tender Inspection: incision intact, healing well and drainage (none) Bimanual Exam - Vag & Uterus: uterus non-tender Uterus Palpation: uterus fundus firm (below Umbilicus) Assessment & Plan (1) delivery delivered: COMMENT: SM 39 ltcs and bs h/o hematoma, boy Pedro (2) Depression affecting : PLAN: s/p LTCS PPD # 1 1. routine post care 2. breast feeding- support given 3. rh positive 4. rubella immune
[2021-03-15 11:52] VITALS: BP 104/48; PULSE 88; RESP 15; TEMP 36.6
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
[2021-03-15 15:48] VITALS: BP 103/54; PULSE 93; RESP 16; TEMP 36.6; O2SAT 96
[2021-03-15 20:37] VITALS: BP 101/49; PULSE 80; RESP 16; TEMP 36.7; O2SAT 97
[2021-03-16] MEDS: 0.9% Saline Lock 10 ML Syringe IV ×2 (02:37→08:39)
[2021-03-16] MEDS: Ketorolac 30 MG/ML Syringe IV ×2 (02:37→08:38)
[2021-03-16 02:38] VITALS: BP 116/69; PULSE 84; RESP 16; TEMP 36.6; O2SAT 97
[2021-03-16] MEDS: Acetaminophen 500 MG Tablet 1000 MG PO (05:01)
--- NOTE | 2021-03-16 06:23 | PCM.PN.OB ---
Subjective Subjective Patient doing well without complaints. Tolerating PO. Ambulating and voiding without difficulty. feeding well. Denies chest pain, shortness of breath, calf pain/swelling, fevers, chills, lightheadedness. Objective Data Objective Data Vital Signs: Vital Signs Temp Pulse Resp BP Pulse Ox 97.8 F 84 16 116/69 97 03/16/21 02:38 03/16/21 02:38 03/16/21 02:38 03/16/21 02:38 03/16/21 02:38 Oxygen Delivery Method Room Air Weight: 121 lb 11.123 oz Body Mass Index (BMI) 27.3 Intake & Output: Intake and Output for Last 24 Hours 03/14/21 03/15/21 03/16/21 23:59 23:59 23:59 Intake Total 3116.38 / 3116.38 Output Total 800 / 800 500 / 500 Balance 2316.38 / 2316.38 -500 / -500 Lab / Micro Data Result Diagrams: 03/15/21 05:30 Micro: Microbiology 03/14/21 10:21 Nasal Secretion SARS-CoV-2 Antigen (Rapid) - Final ROS Constitutional Constitutional: Reports systems reviewed and no addt'l complaints, except as documented Cardiovascular Cardiovascular: Reports systems reviewed and no addt'l complaints, except as documented Respiratory/Chest Respiratory/Chest: Reports systems reviewed and no addt'l complaints, except as documented Gastrointestinal Gastrointestinal: Reports systems reviewed and no addt'l complaints, except as documented Physical Exam Const alert, oriented x3 and no apparent distress HEENT Head and Scalp: atraumatic Resp normal respiratory effort GI soft to palpation and non-tender Inspection: incision intact, healing well and drainage (none) Bimanual Exam - Vag & Uterus: uterus non-tender Uterus Palpation: uterus fundus firm (below Umbilicus) Assessment & Plan (1) delivery delivered: COMMENT: SM 39 ltcs and bs h/o hematoma, boy Pedro (2) Depression affecting : PLAN: s/p LTCS PPD # 2 1. routine post care 2. breast feeding- support given 3. rh positive 4. rubella immune
[2021-03-16] MEDS: Senna/Docusate Sodium 1 Tablet PO (08:39)
[2021-03-16 08:47] VITALS: BP 136/80; PULSE 78; RESP 16; TEMP 36.6; O2SAT 97
[2021-03-17 13:00] LABS: Pathology Specimen OB SEE PATHOLOGY REPORT
== END 2021-03-16 09:40 | disposition home or self-care (01) | DRG 785 ==
PROVIDERS: Admitting Provider Obstetrics & Gynecology; Visit Provider Obstetrics & Gynecology
PROC: 10D00Z1 Extraction of Products of Conception, Low, Open Approach (ICD-10-PCS; CPT 59514; principal; 2021-03-14 11:45)
DX: O99.02 Anemia complicating childbirth (principal); D64.9 Anemia, unspecified; O99.344 Other mental disorders complicating childbirth; F32.A Depression, unspecified; O99.334 Smoking (tobacco) complicating childbirth; F17.210 Nicotine dependence, cigarettes, uncomplicated; Z3A.39 39 weeks gestation of pregnancy; Z37.0 Single live birth
CPT/HCPCS: 85025; 85027; 86850; 86900; 86901; 87426; 88302; 99218; J7120; A4216; G0378; J2405